=== PATIENT | male | born 1970 | race Caucasian/White ===

== ENCOUNTER 2021-05-10 22:34 | Inpatient (IN) ==
[2021-05-10 23:14] LABS: Basophils # (auto) 0.02 K/uL (0-0.2); Basophils % (auto) 0.1 %; Eosinophils # (auto) 0.12 K/uL (0-0.5); Eosinophils % (auto) 0.9 %; Hematocrit (blood only) 52.7 % (42-52); Hemoglobin 17.3 g/dL (14.0-18.0); Immature Granulocytes # (auto) 0.02 K/uL (0.00-0.02); Immature Granulocytes % (auto) 0.1 %; Lymphocytes # (auto) 1.35 K/uL (1.2-3.4); Lymphocytes % (auto) 9.9 %; Mean Corpuscular Hemoglobin 32.3 pg (25-34); Mean Corpuscular Hgb Conc 32.8 g/dL (32-36); Mean Corpuscular Volume 98.3 fL (80-100); Mean Platelet Volume 10.6 fL (7.4-10.4); Monocytes # (auto) 1.41 K/uL (0.11-0.59); Monocytes % (auto) 10.4 %; Neutrophils # (auto) 10.67 K/uL (1.4-6.5); Neutrophils % (auto) 78.6 %; Platelet Count 305 K/uL (130-400); RDW Coefficient of Variation 15.6 % (11.5-14.5); RDW Standard Deviation 56.5 fL (36.4-46.3); Red Blood Count 5.36 M/uL (4.7-6.1); White Blood Count 13.59 K/uL (4.8-10.8)
[2021-05-10 23:24] LABS: Partial Thromboplastin Time 27.5 Seconds (21.0-31.0)
[2021-05-10 23:37] LABS: Alanine Aminotransferase 16 U/L (12-78); Albumin Level 3.3 gm/dl (3.4-5.0); Aspartate Aminotransferase 11 U/L (15-37); BUN Creatinine Ratio 16.6 (10-20); Blood Urea Nitrogen 14 mg/dl (7-18); Calcium 9.8 mg/dl (8.5-10.1); Carbon Dioxide 29 mmol/L (21-32); Chloride 98 mmol/L (98-107); Creatinine Clr Calc Pharmacy 152.5 ml/min; Est GFR (African American) 117.5 ml/min; Est GFR (Non-African American) 101.4 ml/min; Glucose 104 mg/dl (70-99); Lipase 59 U/L (73-393); Magnesium 1.9 mg/dl (1.8-2.4); Sodium 134 mmol/L (136-145)
[2021-05-10 23:48] LABS: Albumin Globulin Ratio 0.6 (0.9-2); Alkaline Phosphatase 77 U/L (45-117); Bilirubin,Total 1.5 mg/dl (0.2-1); Globulin 5.6 gm/dl (2.5-4.0); NT Pro B Type Natriuretic Pept 155 pg/ml (0-900); Troponin I < 0.015 ng/ml (0-0.045)
[2021-05-11] MEDS ORDERED: OPTIRAY 320 125ml IV ONE (00:14)
[2021-05-11] MEDS ORDERED: PIPERACILL/TAZOBAC CONSULT ACTIVE PRN (01:36)
[2021-05-11] MEDS ORDERED: PIPERACILLIN/TAZOBACTAM 4.5 GM/120 ML BAG IV ONE (01:36)
--- NOTE | 2021-05-11 02:38 | History & Physical Report ---
Date of Service May 11, 2021 Assessment & Plan (1) Acute Lyme disease: Plan: Patient is a 50 year old male with PMHx GERD, Anxiety, Depression, Hypertension who presented by EMS for chief complaint of initially chest pain, but upon further discussion appears more LUQ abdominal pain in addition to bradycardia at 40bpm where he was given 0.5mg Atropine and fluids en-route. Lyme Disease -Questionable treatment duration of Lyme disease from patient's history -Will also run anaplasmosis at this time due to abdominal pain -Coverage with CTX and Doxycycline Bradycardia -Bradycardic to 40's in EMS and received 0.5mg Atropine -In ED now rate in the 50-60's -No history of cardiac conditions -?Lyme carditis due to duration and possible undertreatment -EKG here shows primarily 1st degree block -Continue to monitor on telemetry Abdominal Pain -Initially concerning for chest pain, though more abdominal in nature -Patient adamant about not allowing examination of the abdomen due to concerns of pain -CXR concerning for pneumonia, though chest CTA stat read noting primarily RUL chronic inflammation and subpleural ground-glass densities at the lung bases -Will await final read for chest CTA -Bilirubin elevated at 1.5 -Will order for CT ab/pelvis at this time Cellulitis L leg -Coverage with CTX and Doxycycline -Will add Vancomycin as patient has been in and out of the ED multiple times this past 1 month Elevated Serum Protein -Fairly elevated serum protein despite low albumin -May be secondary to current leukocytosis -With patients recent hx of fevers and night sweats (though also Lyme+) concern for malignancy -Will check UPEP and SPEP Dispo: Med/Surg Telemetry for continuous monitoring and IV antibiotics FEN: Regular diet DVT: Low risk, ambulate as able Code: Conditional - OK for CPR, patient would not want intubation (2) Abdominal pain: (3) Cellulitis of left leg: (4) Bradycardia: History of Present Illness Chief Complaint: Patient is a 50 year old male with PMHx GERD, Anxiety, Depression, Hypertension who presented by EMS for chief complaint of initially chest pain, but upon further discussion appears more LUQ abdominal pain in addition to bradycardia at 40bpm where he was given 0.5mg Atropine and fluids en-route. Patient is unfortunately a poor historian, but is able to note that his symptoms have been ongoing for the past 1-2 months. He note initially he started with symptoms concerning for cellulitis in his legs b/l 2 months ago where he was being treated with oral antibiotics. Patient then notes that around 01/09/21 he was seen in the ED for a flu like illness x1 week after which he had removed a tick from his left axilla and had developed a rash. At that time patient was started on a medrol dose pack for contact dermatitis. Patient notes that he saw his PCP on the week of March 27 as his symptoms had not improved and at that time he was found to have Lyme disease and started on Doxycycline 100mg BID. From this point on patient's history becomes somewhat convoluted as he notes that he was switched from Doxycycline to Amoxicillin within the past 1- 2 weeks for the cellulitis on his legs and that he was told the doxycycline was inappropriate treatment for his lyme disease. Patient cannot recall how many days of treatment he has been on Doxycycline, but states he did not take it today. He also has been noticing occasional fevers, night sweats, and joint pain worse in his elbows and knees. He feels his cellulitis has not improved much on his L leg. He also notes having abdominal pain that starts in his L flank and will "swoop across" his abdomen to the R side just above his abdomen line. He states it "feels like a night when you drink too much." He denies any nausea, vomiting, SOB, chest pain, chest pressure, and dizziness at this time. Med Hx: GERD, Anxiety, Depression, HTN Surg Hx: None per patient Soc Hx: Smokes 1/2 PPD, had done more prior, started smoking since 16. Drinks 1- 2 beers a year x7 years, used to drink up to a case of beer and fifth of [employer]. Endorses marijuana usage. Primary Care Provider: Scooter Servin Allergies Allergy/AdvReac Type Severity Reaction Status Date / Time POLLEN Allergy Intermediate SNEEZING, Uncoded 05/10/21 23:54 CONGESTION Home Medications Medication Instructions Recorded Confirmed Type albuterol sulfate 90 mcg/actuation 2 puff INHALATION Q4H PRN 05/10/21 05/10/21 History aerosol inhaler furosemide 40 mg tablet 40 mg PO DAILY 05/10/21 05/10/21 History triamcinolone acetonide 0.1 % 1 applic TOPICAL BID 05/10/21 05/10/21 History topical cream doxycycline hyclate 100 mg capsule 100 mg PO BID 21 Days #42 cap 05/15/21 Rx Past Med/Surg History Medical History Acute Lyme disease Surgical History No pertinent past surgical history Social History Smoking Status: Current every day smoker Tobacco Type: Cigarettes Hx Alcohol Use: Yes Alcohol type: beer Hx Substance Use: Yes Last Used Substance: Unknown Preferred Language: Nepalese Communication Ability: Effective Beliefs That Will Affect Care: None Current Living Situation: Alone Feels Safe at Home: Yes Assistive Devices: Brace/Splint/Immobilizer Review of Systems Review of Systems: All systems reviewed & are unremarkable except as noted in Subjective Physical Exam Constitutional: well developed, well nourished, + disheveled and + overweight; no acute distress Eyes: PERRL, conjunctivae normal, anicteric sclerae normal visual gunn by confrontation ENMT: external ear and nose normal, oropharynx normal Mouth: + poor dentition Neck: trachea midline, no thyromegaly Respiratory: normal respiratory effort, lungs clear to auscultation Cardiovascular: RRR, no murmur, no edema Extremities: no calf tenderness Gastrointestinal (Abdomen): Inspection/Auscultation: abdomen normal to inspection, + abdomen distended, normal bowel sounds and + significant pannus Percussion/Palpation: + abdomen tender (slight ttp in RUQ, patient would not allow examination of LUQ), + guarding (Noted with attempts to examine LUQ) and abdomen soft; abdomen not rigid Musculoskeletal: no cyanosis or clubbing, extremities motor strength 5/5 Head/Neck/Chest: normocephalic and head atraumatic Skin: no rashes, warm and dry Erythema noted overlying the left lower mid valentin to ankle No purulent drainage or bleeding Significant dry and scaly patches on patient's feet b/l worse on the L foot Neurologic: PERRL, EOMI, accommodation nl, no face palsy, no dysarthria Psychiatric: Orientation: alert and oriented x 3 Apperance: + disheveled Eye Contact: + fair eye contact Affect: euthymic affect Results & Data Results & Data ([facility]) Vital Signs (Past 12 Hours) Vital Signs Temp Pulse Pulse Resp BP BP Pulse Ox 05/11/21 02:27 50 L 16 163/81 H 96 05/11/21 00:17 49 L 16 129/92 93 05/10/21 22:53 96 05/10/21 22:48 36.4 C L 60 16 118/58 L 96 Supervising Physician Co-Signing Physician Notes Attending addendum: I have physically seen this patient, have supervised the medical residents jigar martin, and agree with the H&P unless as otherwise noted. Assessment and Plan: Acute Lyme disease- Ceftriaxone 2 g IV daily Doxycycline 100 mg IV twice daily Add anaplasmosis testing Bradycardia-symptomatic The patient will be admitted to telemetry for serial cardiac enzymes, serial EKG's, cardiac rhythm monitoring and a 2-D echocardiogram with Dopplers. Received 0.5 mg atropine by EMS in the field for heart rate in the 40s, with resultant ED heart rate in the 50-60s Question Lyme associated Not on any negative inotropes Multifocal pneumonia- Antibiotics as above COVID-19 testing negative Duonebs every 4 hours while awake and every 2 hours when necessary. Guaifenesin extended release 1200 mg p.o. twice daily Remaining orders and notations as noted Resident Activity Tracking Resident Involvement: Resident Care Provided Care Provided: Adult Hospital Medicine
--- NOTE | 2021-05-11 03:00 | Emergency Department Note ---
History of Present Illness General Chief Complaint: Chest Pain Stated Complaint: Chest Pain Time Seen by Provider: 05/10/21 22:34 History of Present Illness This 50-year-old who smokes and drinks alcohol presents to the ER complaining of chest pain for the past day with no prior heart disease Location: Chest Quality: Discomfort Severity: Moderate Duration: 1 day Timing: Started yesterday Context: Patient was concerned and came in Modifying factors: better with sitting up; worse with laying down Patient states he has been having chest pain or shortness of breath for the past day. He does smoke and drinks alcohol. It is worse with laying down. No history of heart failure. No prior heart disease. He normally goes to [facility] but they were on diversion and came here. Patient denies fevers, abdominal pain, vomiting, flulike illness. No Covid vaccine. Patient was given atropine by EMS for symptomatic bradycardia. He did not require any atropine in the ER. I did obtain the records from [place] patient's heart rate normally is in the low 50s. Home Medications Medication Instructions Recorded Confirmed Type albuterol sulfate 90 mcg/actuation 2 puff INHALATION Q4H PRN 05/10/21 05/10/21 History aerosol inhaler doxycycline hyclate 100 mg capsule 100 mg PO BID 05/10/21 05/10/21 History furosemide 40 mg tablet 40 mg PO DAILY 05/10/21 05/10/21 History triamcinolone acetonide 0.1 % 1 applic TOPICAL BID 05/10/21 05/10/21 History topical cream Allergies Allergy/AdvReac Type Severity Reaction Status Date / Time POLLEN Allergy Intermediate SNEEZING, Uncoded 05/10/21 23:54 CONGESTION Past Med/Surg History Medical History (Updated 05/11/21 @ 03:00 by Liza Deutsch PA-C) Acute Lyme disease Surgical History (Updated 05/11/21 @ 02:55 by Liza Deutsch PA-C) No pertinent past surgical history Social History Smoking Status: Current every day smoker Tobacco Type: Cigarettes Feels Safe at Home: Yes Review of Systems A total of 10 systems reviewed and were otherwise negative Physical Exam Vital Signs Vital Signs - 24 hr 05/10/21 22:48 05/10/21 22:53 05/11/21 00:17 Temperature 36.4 C L Temperature Source Oral Pulse Rate 60 Pulse Rate [Radial] 49 L Respiratory Rate 16 16 Blood Pressure 118/58 L Blood Pressure [Left Arm] 129/92 Blood Pressure Mean 78 Blood Pressure Mean [Left Arm] 104 Pulse Oximetry 96 96 93 Oxygen Delivery Method Room Air Room Air Room Air Oxygen Flow Rate 0 Sepsis Recent Fever Within 48 Hours No Sepsis New/Unexplained Change in Mental Status No Sepsis Action Taken by Nursing No Action Required 05/11/21 02:27 Temperature Temperature Source Pulse Rate Pulse Rate [Radial] 50 L Respiratory Rate 16 Blood Pressure Blood Pressure [Left Arm] 163/81 H Blood Pressure Mean Blood Pressure Mean [Left Arm] 108 Pulse Oximetry 96 Oxygen Delivery Method Room Air Oxygen Flow Rate Sepsis Recent Fever Within 48 Hours Sepsis New/Unexplained Change in Mental Status Sepsis Action Taken by Nursing VITALS: Vitals are noted on the nurse's note and reviewed by myself. Vital signs stable. GENERAL: Pleasant male, in no acute distress, nondiaphoretic, well-developed well-nourished. SKIN: Venous stasis changes to the lower legs, the rest of the skin was without rashes, or bruising. There is no tenting of the skin. Capillary reflex less than 2 seconds. HEAD: Normocephalic atraumatic. EARS: External auditory canals clear, tympanic membranes pearly cortez without erythema or effusion bilaterally. EYES: Pupils equal round and reactive to light and accommodation. Conjunctivae without injection, sclerae without icterus. Extraocular movements intact. NOSE: Patent, turbinates without inflammation or discharge. No sinus tenderness. MOUTH: Mucous membranes moist. Pharynx without erythema or exudate. Uvula midline. Airway patent. Tongue does not deviate. NECK: Supple without nuchal rigidity. No lymphadenopathy. No thyromegaly. Cervical spine is nontender. No JVD. HEART: Regular rate and rhythm LUNGS: Clear to auscultation bilaterally without wheezes, rales or rhonchi. No retractions or accessory muscle use. ABDOMEN: Positive bowel sounds x 4. Normal tympanic percussion. Soft, nonte nder, without masses or organomegaly. Rueda sign negative. No guarding or rebound tenderness. No CVA tenderness MUSCULOSKELETAL: No muscle atrophy noted. +1 pitting edema bilaterally up to the mid tib-fib NEURO: Patient was alert and oriented to person place and time. Normal sensation to light and sharp touch. No focal neurological deficits. Course Administered Medications Discontinued Medications Piperacillin Sod/Tazobactam Sod (Zosyn) 4.5 gm in 120 mls @ 240 mls/hr IV NOW ONE Stop: 05/11/21 02:05 Last Admin: 05/11/21 02:52 Dose: 240 mls/hr Documented by: [id number] Ioversol (Optiray 320 125ml) 120 ml IV ONCE ONE Stop: 05/11/21 00:15 Last Admin: 05/11/21 00:14 Dose: 120 ml Documented by: [id number] Medical Decision Making Medical Records Attestation: I reviewed the patient's medical records. Home Medications Current Medication List: was personally reviewed by me Laboratory Data Attestation: I reviewed the patient's lab results. Result diagrams: 05/10/21 23:00 05/10/21 23:00 Labs: Lab Results 05/10/21 05/10/21 05/10/21 Range/Units 23:00 23:00 23:00 WBC 13.59 H (4.8-10.8) K/uL RBC 5.36 (4.7-6.1) M/uL Hgb 17.3 (14.0-18.0) g/dL Hct 52.7 H (42-52) % MCV 98.3 (80-100) fL MCH 32.3 (25-34) pg MCHC 32.8 (32-36) g/dL RDW Std Deviation 56.5 H (36.4-46.3) fL RDW Coeff of Mee 15.6 H (11.5-14.5) % Plt Count 305 (130-400) K/uL MPV 10.6 H (7.4-10.4) fL Immature Gran % (Auto) 0.1 % Neut % (Auto) 78.6 % Lymph % (Auto) 9.9 % [place] % (Auto) 10.4 % Eos % (Auto) 0.9 % Baso % (Auto) 0.1 % Neut # (Auto) 10.67 H (1.4-6.5) K/uL Lymph # (Auto) 1.35 (1.2-3.4) K/uL [place] # (Auto) 1.41 H (0.11-0.59) K/uL Eos # (Auto) 0.12 (0-0.5) K/uL Baso # (Auto) 0.02 (0-0.2) K/uL Immature Gran # (Auto) 0.02 (0.00-0.02) K/uL APTT 27.5 (21.0-31.0) Seconds PTT Ratio 1.0 Sodium 134 L (136-145) mmol/L Potassium 4.0 (3.5-5.1) mmol/L Chloride 98 (98-107) mmol/L Carbon Dioxide 29 (21-32) mmol/L Anion Gap 8.0 (3-11) BUN 14 (7-18) mg/dl Creatinine 0.84 (0.6-1.4) mg/dl Est Cr Clr Drug Dosing 152.5 ml/min Est GFR ( Amer) 117.5 ml/min Est GFR (Non-Af Amer) 101.4 ml/min BUN/Creatinine Ratio 16.6 (10-20) Glucose 104 H (70-99) mg/dl Calcium 9.8 (8.5-10.1) mg/dl Magnesium 1.9 (1.8-2.4) mg/dl Total Bilirubin 1.5 H (0.2-1) mg/dl AST 11 L (15-37) U/L ALT 16 (12-78) U/L Alkaline Phosphatase 77 (45-117) U/L Troponin I < 0.015 (0-0.045) ng/ml NT-Pro-B Natriuret Pep 155 (0-900) pg/ml Total Protein 9.0 H (6.4-8.2) gm/dl Albumin 3.3 L (3.4-5.0) gm/dl Globulin 5.6 H (2.5-4.0) gm/dl Albumin/Globulin Ratio 0.6 L (0.9-2) Lipase 59 L (73-393) U/L TSH 2.420 (0.300-4.500) uIu/ml Ethyl Alcohol mg/dL (0-3) mg/dl Anaplasma Smear COVID-19 Eval Order SARS-CoV-2 (PCR) (Negative) 05/10/21 05/10/21 05/10/21 Range/Units 23:00 23:00 23:16 WBC (4.8-10.8) K/uL RBC (4.7-6.1) M/uL Hgb (14.0-18.0) g/dL Hct (42-52) % MCV (80-100) fL MCH (25-34) pg MCHC (32-36) g/dL RDW Std Deviation (36.4-46.3) fL RDW Coeff of Mee (11.5-14.5) % Plt Count (130-400) K/uL MPV (7.4-10.4) fL Immature Gran % (Auto) % Neut % (Auto) % Lymph % (Auto) % [place] % (Auto) % Eos % (Auto) % Baso % (Auto) % Neut # (Auto) (1.4-6.5) K/uL Lymph # (Auto) (1.2-3.4) K/uL [place] # (Auto) (0.11-0.59) K/uL Eos # (Auto) (0-0.5) K/uL Baso # (Auto) (0-0.2) K/uL Immature Gran # (Auto) (0.00-0.02) K/uL APTT (21.0-31.0) Seconds PTT Ratio Sodium (136-145) mmol/L Potassium (3.5-5.1) mmol/L Chloride (98-107) mmol/L Carbon Dioxide (21-32) mmol/L Anion Gap (3-11) BUN (7-18) mg/dl Creatinine (0.6-1.4) mg/dl Est Cr Clr Drug Dosing ml/min Est GFR ( Amer) ml/min Est GFR (Non-Af Amer) ml/min BUN/Creatinine Ratio (10-20) Glucose (70-99) mg/dl Calcium (8.5-10.1) mg/dl Magnesium (1.8-2.4) mg/dl Total Bilirubin (0.2-1) mg/dl AST (15-37) U/L ALT (12-78) U/L Alkaline Phosphatase (45-117) U/L Troponin I (0-0.045) ng/ml NT-Pro-B Natriuret Pep (0-900) pg/ml Total Protein (6.4-8.2) gm/dl Albumin (3.4-5.0) gm/dl Globulin (2.5-4.0) gm/dl Albumin/Globulin Ratio (0.9-2) Lipase (73-393) U/L TSH (0.300-4.500) uIu/ml Ethyl Alcohol mg/dL < 3.0 (0-3) mg/dl Anaplasma Smear See Comment COVID-19 Eval Order Covid19 at [facility] SARS-CoV-2 (PCR) (Negative) 05/10/21 Range/Units 23:16 WBC (4.8-10.8) K/uL RBC (4.7-6.1) M/uL Hgb (14.0-18.0) g/dL Hct (42-52) % MCV (80-100) fL MCH (25-34) pg MCHC (32-36) g/dL RDW Std Deviation (36.4-46.3) fL RDW Coeff of Mee (11.5-14.5) % Plt Count (130-400) K/uL MPV (7.4-10.4) fL Immature Gran % (Auto) % Neut % (Auto) % Lymph % (Auto) % [place] % (Auto) % Eos % (Auto) % Baso % (Auto) % Neut # (Auto) (1.4-6.5) K/uL Lymph # (Auto) (1.2-3.4) K/uL [place] # (Auto) (0.11-0.59) K/uL Eos # (Auto) (0-0.5) K/uL Baso # (Auto) (0-0.2) K/uL Immature Gran # (Auto) (0.00-0.02) K/uL APTT (21.0-31.0) Seconds PTT Ratio Sodium (136-145) mmol/L Potassium (3.5-5.1) mmol/L Chloride (98-107) mmol/L Carbon Dioxide (21-32) mmol/L Anion Gap (3-11) BUN (7-18) mg/dl Creatinine (0.6-1.4) mg/dl Est Cr Clr Drug Dosing ml/min Est GFR ( Amer) ml/min Est GFR (Non-Af Amer) ml/min BUN/Creatinine Ratio (10-20) Glucose (70-99) mg/dl Calcium (8.5-10.1) mg/dl Magnesium (1.8-2.4) mg/dl Total Bilirubin (0.2-1) mg/dl AST (15-37) U/L ALT (12-78) U/L Alkaline Phosphatase (45-117) U/L Troponin I (0-0.045) ng/ml NT-Pro-B Natriuret Pep (0-900) pg/ml Total Protein (6.4-8.2) gm/dl Albumin (3.4-5.0) gm/dl Globulin (2.5-4.0) gm/dl Albumin/Globulin Ratio (0.9-2) Lipase (73-393) U/L TSH (0.300-4.500) uIu/ml Ethyl Alcohol mg/dL (0-3) mg/dl Anaplasma Smear COVID-19 Eval Order SARS-CoV-2 (PCR) NEGATIVE (Negative) MDM Narrative Prior records/ancillary studies reviewed. Triage Nursing notes reviewed. Additional history obtained from EMS. The patient's history was concerning for chest pain. Differential diagnosis: Etiologies such as cardiac ischemia, aortic dissection, pulmonary embolism, pneumonia, pneumothorax, musculoskeletal, infections, pericarditis, myocarditis, esophageal rupture, gastrointestinal, as well as others were entertained. Physical examination: As above. ER treatment provided: An order was placed for continuous cardiac monitoring. The monitor shows a rate of 40-80 with a sinus rhythm. Zosyn On reassessment the patient felt better. Diagnostic interpretation by me: The electrocardiogram was negative for pathologic change. Normal sinus, first- degree AV block, no acute ST-T wave changes. Impression first-degree AV block sinus bradycardia interpreted by myself EKG ordered for chest pain I think arrhythmia is unlikely. EKG shows no interval abnormalities such as QT prolongation or WPW. There are no findings to suggest Brugada syndrome. Cardiac monitoring in the emergency department reveals no tachycardic or bradycardic dysrhythmia. Hypertrophic cardiomyopathy was considered but there are no clear historical elements pointing toward this. EKG is not suggestive. The QRS voltage is not extremely large and there are no suggestive Q waves. The labs revealed leukocytosis, negative troponin Imaging studies: CTACHEST: No previous studyfor comparison. Heart is in the upper limits of normal in size. Thoracic aorta appears normal. Evaluation of the pulmonaryarteries is limited bybreathing motion artifact which degrades visualization of some segments of basilar middle lobe and lingular muscles. No filling defect is appreciated. There is some pain groundglass densityat the left lung base and in the right lower lobe subpleural lung. The finding maybe related to subsegmental atelectasis, or pulmonaryinflammation. There is some focal bronchiectasis in the right upper lobe suggesting chronic inflammation. There is no pneumothorax or pleural fluid collection. Chest Wall appears normal. Impression: Limited evaluation of the pulmonaryarterieswith no visualized pulmonaryembolism. Bronchiectasis in the right upper lobe suggesting chronic inflammation. Subpleural groundglass densities at the lung bases likelyrelated to subsegmental atelectasis but may reflect some subpleural inflammation correlation with Covid studyis recommended Radiologist: Ryan Urbina MD HEART SCORE: Hx: high/mod/low suspicion: 1 ECG: ST depression/nonspecific changes/normal: 0 Age: Greater than 65/45-64/less than 45: 1 Risk factors: (Hypertension, hyperlipidemia, diabetes, coronary disease, tobacco use, cocaine use): 1 Troponin: Greater than 2 times normal limits/1-2 times normal limits/normal: 0 Total: 3 Consultation: A consultation was placed with the hospitalist. The case was discussed and diagnostics were reviewed. The patient was evaluated in the ER for further treatment. Exam and history seem consistent with chest pain with unclear etiology. This could be pneumonia or cardiac in etiology. Patient started antibiotics. Medicine is consulted. He will be admitted. By the evaluation outlined above emergent etiologies such as aortic dissection, pulmonary embolism, , pneumothorax, pericarditis, myocarditis, gastrointestinal, as well as others were deemed relatively unlikely. The pt informed about the findings as listed above. All questions were answered and pleased with the treatment. The chart was completed utilizing [employer] Speech voice recognition software. Grammatical errors, random word insertions, pronoun errors, and incomplete sentences are an occassional consequence of this system due to software limitations, ambient noise, and hardware issues. Any formal questions or concerns about the content, text, or information contained within the body of this dictation should be directly addressed to the physician digital marketing assistant for clarification. Impression & Plan Atypical chest pain, Chest pain Discharge Plan Visit Data Chief Complaint: Chest Pain Stated Complaint: Chest Pain ED Provider: Alberto Tavarez ED Midlevel Provider: Liza Deutsch Discharge Problem: Atypical chest pain, Chest pain Patient Disposition: Admitted As Inpatient Condition: Fair Forms Stand Alone Forms: [facility] Prescriptions Prescriptions: No Action furosemide 40 mg tablet 40 mg PO DAILY RF: 0 doxycycline hyclate 100 mg capsule 100 mg PO BID RF: 0 triamcinolone acetonide 0.1 % cream 1 applic TOPICAL BID RF: 0 albuterol sulfate 90 mcg/actuation HFA aerosol inhaler 2 puff INHALATION Q4H PRN (Reason: Shortness Of Breath) RF: 0 Referrals Referrals: Scooter Servin [Primary Care Provider] -
[2021-05-11 03:13] LABS: Lyme Ab IgG w/WB Rflx Positive (Negative); Lyme Ab IgM w/WB Rflx Positive (Negative)
[2021-05-11] MEDS ORDERED: VANCOMYCIN CONSULT ACTIVE PRN (04:13)
[2021-05-11] MEDS ORDERED: ONDANSETRON INJ 2 MG/ML 2 ML VIAL IV PRN ×2 (04:13→16:16)
[2021-05-11] MEDS ORDERED: VANCOMYCIN HCL 2,750 MG in SODIUM CHLORIDE 0.9% 500 ML IV ONE (04:13)
[2021-05-11] MEDS ORDERED: cefTRIAXone SODIUM 2,000 MG in DEXTROSE 5% 50 ML IV SCH (04:13)
[2021-05-11] MEDS ORDERED: DAPTOmycin 400 MG in SYRINGE 0 ML IV SCH (05:00)
[2021-05-11] MEDS ORDERED: DAPTOmycin 600 MG in SYRINGE 0 ML IV SCH (05:00)
[2021-05-11] MEDS: DOXYCYCLINE HYCLATE 100 MG in DEXTROSE 5% 100 ML IV SCH ×2 (05:43→16:01)
[2021-05-11 06:17] LABS: Basophils # (auto) 0.04 K/uL (0-0.2); Basophils % (auto) 0.3 %; Eosinophils # (auto) 0.06 K/uL (0-0.5); Eosinophils % (auto) 0.5 %; Hematocrit (blood only) 52.3 % (42-52); Hemoglobin 17.5 g/dL (14.0-18.0); Immature Granulocytes # (auto) 0.04 K/uL (0.00-0.02); Immature Granulocytes % (auto) 0.3 %; Lymphocytes # (auto) 1.55 K/uL (1.2-3.4); Lymphocytes % (auto) 11.8 %; Mean Corpuscular Hemoglobin 32.7 pg (25-34); Mean Corpuscular Hgb Conc 33.5 g/dL (32-36); Mean Corpuscular Volume 97.8 fL (80-100); Mean Platelet Volume 10.3 fL (7.4-10.4); Monocytes # (auto) 1.78 K/uL (0.11-0.59); Monocytes % (auto) 13.5 %; Neutrophils # (auto) 9.68 K/uL (1.4-6.5); Neutrophils % (auto) 73.6 %; Platelet Count 283 K/uL (130-400); RDW Coefficient of Variation 15.8 % (11.5-14.5); RDW Standard Deviation 56.3 fL (36.4-46.3); Red Blood Count 5.35 M/uL (4.7-6.1); White Blood Count 13.15 K/uL (4.8-10.8)
[2021-05-11 06:58] LABS: Alanine Aminotransferase 14 U/L (12-78); Albumin Globulin Ratio 0.6 (0.9-2); Albumin Level 3.2 gm/dl (3.4-5.0); Alkaline Phosphatase 76 U/L (45-117); Aspartate Aminotransferase 13 U/L (15-37); BUN Creatinine Ratio 13.1 (10-20); Blood Urea Nitrogen 11 mg/dl (7-18); Calcium 9.4 mg/dl (8.5-10.1); Carbon Dioxide 28 mmol/L (21-32); Chloride 99 mmol/L (98-107); Creatinine Clr Calc Pharmacy 153.8 ml/min; Est GFR (African American) 119.9 ml/min; Est GFR (Non-African American) 103.4 ml/min; Globulin 5.5 gm/dl (2.5-4.0); Glucose 99 mg/dl (70-99); Potassium 3.9 mmol/L (3.5-5.1); Sodium 132 mmol/L (136-145); Total Protein 8.7 gm/dl (6.4-8.2)
[2021-05-11 07:03] LABS: Troponin I < 0.015 ng/ml (0-0.045)
--- NOTE | 2021-05-11 07:32 | CT Scan Report ---
CT OF THE ABDOMEN AND PELVIS WITHOUT CONTRAST CLINICAL HISTORY: Left upper quadrant abdominal pain. COMPARISON STUDY: No previous studies for comparison. TECHNIQUE: Axial images of the abdomen and pelvis were obtained without IV contrast. Images were revi ewed in the axial, sagittal, and coronal planes. Automated exposure control was utilized for the toby dy. A dose lowering technique was utilized adhering to the principles of ALARA. FINDINGS: Visualized portions of the lower chest demonstrate a trace left pleural effusion. There are subpleural groundglass opacities within the bilateral lower lobes. Evaluation of the abdomen and pel vis is suboptimal on this unenhanced exam. Sensitivity for detection of urinary calculi is diminished given excreted contrast within the collecting systems, ureters and bladder. No pneumatosis, free air or portal venous gas is present. Unenhanced images of the liver, spleen, adrenal glands and pancreas are unremarkable. There is no evidence for a bowel obstruction. No lymphadenopathy is present. There is no ascites. No acute fractures identified within the visualized skeletal structures. There is no peripancreatic or pericholecystic infiltration. IMPRESSION: 1. No acute process within the abdomen or pelvis on unenhanced exam. 2. Trace left pleural effusion. Subpleural bilateral lower lobe opacities which favor an infectious p rocess. ACT 112: Negative or not required by law. Electronically signed by: Lex Dumont M.D. 05/11/2021 7:30 AM
[2021-05-11] MEDS ORDERED: MELATONIN 3 MG TAB PO PRN (07:43)
[2021-05-11] MEDS: ACETAMINOPHEN 325 MG TAB PO PRN (07:51)
[2021-05-11] MEDS: cefTRIAXone SODIUM 2,000 MG in DEXTROSE 5% 50 ML IV SCH (07:53)
--- NOTE | 2021-05-11 08:04 | CT Scan Report ---
CT ANGIOGRAPHY OF THE CHEST, PULMONARY EMBOLUS PROTOCOL CLINICAL HISTORY: Shortness of breath. Chest pain. Evaluate for pulmonary embolus. COMPARISON STUDY: Chest radiograph May 10, 2021. TECHNIQUE: Following IV administration of 120 mL of Optiray, helical axial images of the chest were o btained utilizing the pulmonary embolus protocol. Maximal intensity projections and sagittal and cor onal reformats were viewed on an independent 3D workstation. IV contrast was administered without co mplication. Automated exposure control was utilized for the study. A dose lowering technique was ut ilized adhering to the principles of ALARA. CT DOSE: 1154.12 mGy.cm FINDINGS: No pulmonary emboli are identified although evaluation of the lower lobe pulmonary arterie s is nearly nondiagnostic given respiratory motion. Moderate cardiomegaly is noted. No pericardial ef fusion. Trace left pleural effusion is noted. No pneumothorax is noted. Lungs are suboptimally assess ed due to respiratory motion. There are bilateral lower lobe ground glass opacities, greater on the l eft. There is bronchiectasis or cystic change within the right upper lobe which is chronic. There is mild paraseptal emphysema. Central airways are patent. No acute fracture or suspicious lesion is iden tified within the visualized skeletal structures. IMPRESSION: 1. No pulmonary emboli identified although evaluation of the bilateral lower lobe pulmonary arteries is nearly nondiagnostic given respiratory motion. Consideration might be given to repeat PE protocol CT and correlation with lower extremity venous Doppler ultrasound. 2. Trace left pleural effusion. Bilateral lower lobe ground glass opacities which may reflect an infe ctious process or atelectasis. 3. Cardiomegaly. ACT 112: Negative or not required by law. Electronically signed by: Lex Dumont M.D. 05/11/2021 8:03 AM
--- NOTE | 2021-05-11 08:13 | XRay Report ---
XR chest 1V portable CLINICAL HISTORY: Chest Pain COMPARISON STUDY: No previous studies for comparison. FINDINGS: There is no pneumothorax. No pleural effusion is noted. Mild left basilar opacity is presen t. Note is made of cardiomegaly. There is slight prominence of interstitium without evidence for pulm onary edema. IMPRESSION: 1. Mild left basilar opacity which may reflect an infectious process or atelectasis. 2. Cardiomegaly. No overt pulmonary edema. ACT 112: Negative or not required by law. Electronically signed by: Lex Dumont M.D. 05/11/2021 8:12 AM
[2021-05-11 08:15] LABS: Estimated Average Glucose 134 mg/dl; Hemoglobin A1C 6.3 % (4.5-5.6)
[2021-05-11] MEDS: ADVANCED PROBIOTIC 1250 MG CAPSULE PO SCH (09:17)
--- NOTE | 2021-05-11 10:12 | Electrocardiogram Report ---
Test Reason : Blood Pressure : / mmHG Vent. Rate : 048 BPM Atrial Rate : 048 BPM P-R Int : 278 ms QRS Dur : 086 ms QT Int : 500 ms P-R-T Axes : 051 003 033 degrees QTc Int : 446 ms Poor data quality, interpretation may be adversely affected Sinus bradycardia with 1st degree A-V block vs. Sinus rhythm with 2:1 A-V conduction (unusual T morphology, may be hidden p wave) Abnormal ECG No previous ECGs available Confirmed by Benja Ritter ([id number]) on 05/11/2021 10:12:51 AM Referred By: REFERRED SELF Confirmed By:Benja Ritter
--- NOTE | 2021-05-11 10:21 | Electrocardiogram Report ---
Test Reason : Blood Pressure : / mmHG Vent. Rate : 051 BPM Atrial Rate : 051 BPM P-R Int : 292 ms QRS Dur : 088 ms QT Int : 510 ms P-R-T Axes : 048 001 030 degrees QTc Int : 470 ms Probable Sinus rhythm with 2nd degree A-V block with 2:1 A-V conduction Biatrial enlargement Abnormal ECG When compared with ECG of 10-MAY-2021 22:44, No significant change Confirmed by Benja Ritter ([id number]) on 05/11/2021 10:21:22 AM Referred By: REFERRED SELF Confirmed By:Benja Ritter
--- NOTE | 2021-05-11 10:31 | Hospitalist Progress Note ---
Date of Service May 11, 2021 Assessment & Plan (1) Acute Lyme disease: Plan: Patient is a 50 year old male with PMHx GERD, Anxiety, Depression, Hypertension who presented by EMS for chief complaint of initially chest pain, but upon further discussion appears more LUQ abdominal pain in addition to bradycardia at 40bpm where he was given 0.5mg Atropine and fluids en-route. 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 -Patient reportedly being treated for Lyme in outpatient setting (initially on doxy --> amox) -Serologies revealing +IgM and +IgG -Given history of extensive rash, joint pains, and now bradycardia (c/f carditis), do suspect Lyme as primary cause of patient's symptoms -Continue CFTX and Doxycycline -- CFTX until normalization of block, doxycycline for 21d thereafter 2nd Degree AVB -- in setting of suspected Lyme carditis, -Apparent-bradycardia to 40's with EMS and received 0.5mg Atropine -Cardiology consulted, appreciate recommendations: - Appears to be 2nd degree AVB w/ 2:1 a/v conduction, re-appreciated on echo - Likely secondary to carditis - Continue to monitor on telemetry - Monitor for symptoms - none at present - Continue Lyme treatment, as abaove Abdominal Pain -Initially concerning for chest pain, though more abdominal in nature -Exam is non-surgical and improving with ABX (?) -CT-A/P unrevealing for acute processes, lipase (-), LFTs (-), TBili mildly elevated to 2.0 -CT-Chest revealing of trace L pleural effusion and bilateral lower lobe opacities s/o fluid vs. infectious process -Suspect secondary to mild pleuritis -Continue to monitor Cellulitis, Bilateral Lower Extremities (L>R) -Coverage with CTX and Doxycycline -Discontinue daptomycin given improvement with amox/doxy as outpatient Elevated Serum Protein -Fairly elevated serum protein despite low albumin -May be secondary to current leukocytosis -With patients recent hx of fevers and night sweats (though also Lyme+) concern for malignancy -Await SPEP, UPEP Dispo: Med/Surg Telemetry for continuous monitoring and IV antibiotics FEN: Regular diet DVT: Low risk, ambulate as able Code: Conditional - OK for CPR, patient would not want intubation (2) Abdominal pain: (3) Cellulitis of left leg: (4) Bradycardia: Admission and Anticipated Discharge Date Admission Date: May 11, 2021 Supervising Physician Co-Signing Physician Notes I also saw the patient and confirmed castillo portions of the history and a physical examination. Upon our exam, the patient is seated at the bedside edge. He reported in general feeling much better than yesterday. Much less in terms of dyspnea; he denies chest pain. He does complain of generalized joint pain, most noted in the hands and wrist. He notes that the abdominal pain that he had yesterday has improved. When I asked him to demonstrate the area discomfort, it is upper abdominal, just subdiaphragmatic, which does raise a question if this is all diaphragmatic irritation secondary from a pericarditis, or a pleurisy type picture. Exam 161/77, 48, 20, 37.4, 90% on room air Auscultated rate mid 40s; regular Lungs are clear with nonlabored respirations. Lower extremities with what appears to be mix of chronic venous stasis, with resolving cellulitis most noted with more intense erythema of the feet bilaterally, right worse than left. Data WBC 13.15, platelet count 283 Sodium 132, potassium 3.9, BUN 11, creatinine 0.8 C-reactive protein is elevated 7.79. Lyme IgG G and IgM are positive COVID-19 screen is negative Assessment and Plan I agree with the assessment and plan as noted in the resident documentation Lyme disease Bradycardia Appreciate cardiology consultation Echocardiogram pending Continue telemetry Pleuritic chest pain/abdominal pain Cellulitis, bilateral lower extremities, resolving Continue doxycycline and ceftriaxone for his Lyme and lower extremity cellulitis respectively Discontinue daptomycin; it is noted that the lower extremities were improving on amoxicillin alone as an outpatient Other diagnoses as noted in the resident documentation Subjective Did have one episode of prolonged 2:1 AVB overnight that self-resolved. NAEO otherwise. Reports feeling much better this morning - pain in his abdomen is down and just feels like he has more energy. We reviewed some of his history, and does endorse that his BILATERAL lower extremity rashes (which started after wound on his feet) got better following doxycycline --> amoxicillin in the outpatient setting. Still not necessarily clear from history why this was changed. Patient is seen at wound center. No CP/palpitations. No SOB. No n/v. Appetite ok. Review of Systems 2 Review of Systems: as per HPI Physical Exam Physical Exam: General: overall well appearing 50-year-old male who is sitting on edge of hospital bed, relaxed, upon my arrival. NAD. HEENT: MMM. Cardiac: Sinus bradycardia, no ectopy; S1 and S2 present with no murmurs, rubs, or gallops. Pulmonary: Good respiratory effort with symmetric expansion of the chest. No use of accessory muscles. Lungs were clear to auscultation bilaterally with no crackles or wheezes. Abdominal:No rash. Abdomen was soft, nondistended, and mildly-TTP within LUQ extending up toward the rib cage. Extremities: Lower extremities revealing of extensive blanchable erythema and scaling below the knees. Left foot with evidence of superficial, erythematous ulcer - no drainage. Results & Data Results & Data ([facility]) Vital Signs (Past 12 Hours) Vital Signs Temp Pulse Pulse Pulse Resp BP BP 05/11/21 07:17 37.8 C H 51 L 20 05/11/21 04:21 36.8 C 51 L 18 159/82 H 05/11/21 04:02 50 L 23 132/85 05/11/21 03:22 50 L 50 L 23 132/85 05/11/21 02:27 50 L 16 163/81 H 05/11/21 00:17 49 L 16 129/92 05/10/21 22:53 05/10/21 22:48 36.4 C L 60 16 118/58 L BP Pulse Ox 05/11/21 07:17 131/55 L 89 L 05/11/21 04:21 94 05/11/21 04:02 05/11/21 03:22 92 05/11/21 02:27 96 05/11/21 00:17 93 05/10/21 22:53 96 05/10/21 22:48 96 Resident Activity Tracking Resident Involvement: Resident Care Provided Care Provided: Adult Hospital Medicine
--- NOTE | 2021-05-11 10:53 | Cardiology Consultation ---
Date of Consultation May 11, 2021 Assessment & Plan (1) Bradycardia: Although ECG is suggestive of simple sinus bradycardia in the 50 bpm range and there is a notation mentioning that the patient's heart rate is usually in this range, the abnormal morphology of T waves on today's ECG as well as telemetry findings of clear evidence of high-grade heart block suggest that his underlying rhythm is actually sinus at 100 bpm with second-degree AV block and 2:1 AV conduction. Will confirm or refute this by evaluating atrial inflow pattern on his echocardiogram (to be obtained today). Further management will depend on whether the patient develops recurrent symptomatic bradycardia as well as whether he responds to treatment of his Lyme disease. 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 (2) Acute Lyme disease: Unclear duration of his Lyme disease, since his rash may have been a month or more ago. Certainly, occurrence of high-grade heart block in 50-year-old man with acute or subacute Lyme disease suggest an Lyme carditis, he is being appropriately treated for this with ceftriaxone and doxycycline. (3) Pleuritic chest pain: Likely due to either pleuritis (more likely) or pericarditis (less likely without ECG changes), fortunately the patient has a negative troponin and is unlikely to have a myocarditis. Again, suspect this is related to his underlying acute/subacute Lyme disease. Consider addition of nonsteroidal anti- inflammatory agent for symptomatic management. History of Present Illness Reason for Consultation: Bradycardia Requesting Physician: Kelvin Castillo MD Attending Physician: Bishnu Tam, DO History of Present Illness 50-year-old man with no cardiac history but a remote and recent history of Lyme disease was admitted with what now appears to be pleuritic chest pain as well as abdominal discomfort, noted to have high-grade heart block with 2:1 AV conduction. He notes that he was treated for Lyme disease 6 years ago and again began treatment about a month ago. He has had a multitude of symptoms including recurrent lower extremity cellulitis, bilateral thoracic erythema migrans type rash at some point, fevers and chills, all of which have been going on for weeks to a month or so. In the past few days, he noted nonspecific abdominal thoracic discomfort, today he is noting pleuritic chest pain worse on deep inspiration. Although ECG appears to be sinus bradycardia at 50 bpm, the T wave morphology is unusual (particularly in his ECG from today) and telemetry overnight distinctly showed sinus at a rate near 100 bpm with 2:1 AV block (which was more likely transiently revealed than simply occurring transiently). Suspect that he is consistently sinus at 100 bpm with 2-1 AV block, will check echocardiogram to confirm further. Allergies Allergy/AdvReac Type Severity Reaction Status Date / Time POLLEN Allergy Intermediate SNEEZING, Uncoded 05/10/21 23:54 CONGESTION Home Medications Medication Instructions Recorded Confirmed Type albuterol sulfate 90 mcg/actuation 2 puff INHALATION Q4H PRN 05/10/21 05/10/21 History aerosol inhaler doxycycline hyclate 100 mg capsule 100 mg PO BID 05/10/21 05/10/21 History furosemide 40 mg tablet 40 mg PO DAILY 05/10/21 05/10/21 History triamcinolone acetonide 0.1 % 1 applic TOPICAL BID 05/10/21 05/10/21 History topical cream Patient History Medical History Acute Lyme disease Surgical History No pertinent past surgical history Social History Smoking Status: Current every day smoker Tobacco Type: Cigarettes Hx Alcohol Use: Yes Alcohol type: beer Hx Substance Use: Yes Last Used Substance: Unknown Preferred Language: Tajik Communication Ability: Effective Beliefs That Will Affect Care: None Current Living Situation: Alone Feels Safe at Home: Yes Safety Concerns: Feels Safe At This Time Assistive Devices: Cane Physical Exam Physical Exam: Mildly obese middle-aged white male in no distress. Temperature 100.0 degrees. Normotensive BP. Pulse 50 bpm and regular. Skin: no ecchymoses or generalized lesions. HEENT: unremarkable. Neck: no JVD or carotid bruits. Lungs: Mildly decreased breath sounds but generally clear. Cardiac: regular rhythm, no obvious murmur or gallop. Abdomen: Minimal epigastric tenderness, otherwise benign. Extremities: Mild pretibial edema with bilateral rubor/erythema. Ulceration left foot. Neurologic: normal affect and conversation, nonfocal. Results & Data ([facility]) Laboratory Results Negative troponin x2. WBC 13.15 with normal hemoglobin. Sodium 132, otherwise normal electrolytes, BUN 11, creatinine 0.8. Diagnostic Findings ECG appears superficially to be sinus bradycardia at 51 bpm, however as noted in HPI this is more likely sinus tachycardia at 100 bpm with second-degree AV block with 2-1 AV conduction. Telemetry did show transient high-grade heart block with sinus at 100 bpm and ventricular rate 50 bpm. PG Care Time/CCT Total # of Minutes Spent Total Time Spent with Patient: Total time spent is greater than 50% in coordination of care (as documented) at patient's floor/unit and/or counseling patient: Coding Level of Care Code 08034 Inpt Consult Level 4 Diagnoses Bradycardia R00.1 Pleuritic chest pain R07.81 Acute Lyme disease A69.20
--- NOTE | 2021-05-11 12:30 | XCELERA ---
[id number]
[2021-05-11] MEDS ORDERED: KETOROLAC TROMETHAMINE 15 MG/ML VIAL IV ONE (15:01)
[2021-05-12] MEDS: DOXYCYCLINE HYCLATE 100 MG in DEXTROSE 5% 100 ML IV SCH (04:47)
[2021-05-12 07:36] LABS: Basophils # (auto) 0.04 K/uL (0-0.2); Basophils % (auto) 0.4 %; Eosinophils % (auto) 2.1 %; Hematocrit (blood only) 52.1 % (42-52); Immature Granulocytes # (auto) 0.03 K/uL (0.00-0.02); Immature Granulocytes % (auto) 0.3 %; Lymphocytes # (auto) 1.94 K/uL (1.2-3.4); Lymphocytes % (auto) 20.4 %; Mean Corpuscular Hemoglobin 32.5 pg (25-34); Mean Corpuscular Hgb Conc 32.6 g/dL (32-36); Mean Corpuscular Volume 99.6 fL (80-100); Mean Platelet Volume 10.6 fL (7.4-10.4); Monocytes # (auto) 1.25 K/uL (0.11-0.59); Monocytes % (auto) 13.1 %; Neutrophils # (auto) 6.06 K/uL (1.4-6.5); Neutrophils % (auto) 63.7 %; Platelet Count 299 K/uL (130-400); RDW Coefficient of Variation 15.8 % (11.5-14.5); RDW Standard Deviation 58.1 fL (36.4-46.3); Red Blood Count 5.23 M/uL (4.7-6.1); White Blood Count 9.52 K/uL (4.8-10.8)
[2021-05-12 08:08] LABS: Albumin Level 3.1 gm/dl (3.4-5.0); Calcium 9.6 mg/dl (8.5-10.1); Creatinine Clr Calc Pharmacy 155.1 ml/min; Est GFR (African American) 120.5 ml/min; Potassium 4.1 mmol/L (3.5-5.1)
[2021-05-12] MEDS: ADVANCED PROBIOTIC 1250 MG CAPSULE PO SCH (08:14)
[2021-05-12] MEDS: NICOTINE 14 MG/24 HR PATCH TD SCH (08:14)
[2021-05-12 08:20] LABS: Albumin Globulin Ratio 0.6 (0.9-2); Bilirubin,Total 1.1 mg/dl (0.2-1); Globulin 5.6 gm/dl (2.5-4.0); Total Protein 8.7 gm/dl (6.4-8.2)
[2021-05-12] MEDS ORDERED: NICOTINE 14 MG/24 HR PATCH TD SCH (09:00)
--- NOTE | 2021-05-12 09:11 | Hospitalist Progress Note ---
Date of Service May 12, 2021 Assessment & Plan (1) Acute Lyme disease: Plan: Patient is a 50 year old male with PMHx GERD, Anxiety, Depression, Hypertension who presented by EMS for chief complaint of initially chest pain, but upon further discussion appears more LUQ abdominal pain in addition to bradycardia at 40bpm where he was given 0.5mg Atropine and fluids en-route. Current suspicion is that symptoms are likely sec to Lyme carditis. 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 -Patient reportedly being treated for Lyme in outpatient setting (initially on doxy --> amox) -Serologies revealing +IgM and +IgG -Given history of extensive rash, joint pains, and now bradycardia (c/f carditis), do suspect Lyme as primary cause of patient's symptoms -Continue CFTX until normalization of blockade 2nd Degree AVB-- in setting of suspected Lyme carditis, -Apparent-bradycardia to 40's with EMS and received 0.5mg Atropine -With intermittent episodes of short 3rd degree AVB recorded overnight on 05/11- -Cardiology consulted, appreciate recommendations: - Appears to be 2nd degree AVB w/ 2:1 a/v conduction, re-appreciated on echo - Likely secondary to carditis - Continue to monitor on telemetry - Will await recs on need for temporary pacer - Echo demonstratin:1 AVB, normal LVEF (60-65%), mildly dilated RV, mild- moderate TR, mildly elevated RVSP, no effusion - Monitor for symptoms - none at present - Continue Lyme treatment, as above Abdominal Pain -- suspect secondary to pleuritis vs >> mild pericarditis -Initially concerning for chest pain, though more abdominal in nature -Exam is non-surgical and improving with ABX (?) -CT-A/P unrevealing for acute processes, lipase (-), LFTs (-), TBili mildly elevated to 2.0 -CT-Chest revealing of trace L pleural effusion and bilateral lower lobe opacities s/o fluid vs. infectious process -Suspect secondary to mild pleuritis or possibly pericarditis -- improving day- to-day -NSAIDS p.r.n. -Continue to monitor Venous Stasis Dermatitis (B/L), with mild Superimposed LLE Cellulitis -Encourage elevation of legs, compression stockings -Coverage with CTX and Doxycycline for now -Discontinue daptomycin given improvement with amox/doxy as outpatient Elevated Serum Protein -Fairly elevated serum protein despite low albumin -Suspect secondary to ongoing inflammation -With patients recent hx of fevers and night sweats (though also Lyme+) concern for malignancy -Await SPEP, UPEP Dispo: Med/Surg Telemetry for continuous monitoring and IV antibiotics FEN: Regular diet DVT: Low risk, ambulate as able Code: Conditional - OK for CPR, patient would not want intubation (2) Abdominal pain: (3) Cellulitis of left leg: (4) Bradycardia: Admission and Anticipated Discharge Date Admission Date: May 11, 2021 Supervising Physician Co-Signing Physician Notes I also saw the patient and confirmed castillo portions of the history and a physical examination. Upon our exam, the patient is seated at the bedside edge. He feels about the same as yesterday; more frustrated with being consistently ill for the last several weeks. Exam 146/75, 62, 17, 36.6, 92% on room air Auscultated rate mid 50s; regular Lungs are clear with nonlabored respirations. Lower extremities with what appears to be mix of chronic venous stasis, with resolving cellulitis. Data WBC 9.52, platelet count 299 Sodium 137, potassium 4.1, BUN 13, creatinine 0.79 Assessment and Plan I agree with the assessment and plan as noted in the resident documentation Lyme disease Bradycardia Appreciate cardiology consultation Continue telemetry Increase activity Pleuritic chest pain/abdominal pain Cellulitis, bilateral lower extremities, resolving Other diagnoses as noted in the resident documentation Subjective Feeling frustrated this morning. Notes that his illness course has been prolonged and is frustrated with still being in the hospital. Reports that he wants to leave later today if it is possible. We did spend thorough time discussing the reason for his stay and need for antibiotic and close cardiac monitoring. He did demonstrate understanding. Denies any chest pain, palpitations, shortness of breath. Denies any lightheadedness or vertigo. No nausea. Appetite good. Did have several instances of transition between second and third degree AV block last night, asymptomatic, occurred while sleeping. Review of Systems Review of Systems: As per HPI Physical Exam Physical Exam: General: overall well appearing 50-year-old male who is sitting on edge of hospital bed, relaxed, upon my arrival. NAD. HEENT: MMM. Cardiac: Sinus bradycardia, no ectopy; S1 and S2 present with no murmurs, rubs, or gallops. Pulmonary: Good respiratory effort with symmetric expansion of the chest. No use of accessory muscles. Lungs were clear to auscultation bilaterally with no crackles or wheezes. Abdominal:No rash. Abdomen was soft, nondistended, and mildly-TTP within LUQ extending up toward the rib cage. Extremities: Lower extremities revealing of extensive blanchable erythema and scaling below the knees. Left foot with evidence of superficial, erythematous ulcer - no drainage. Results & Data Results & Data ([facility]) Vital Signs (Past 12 Hours) Vital Signs Temp Pulse Pulse Resp BP Pulse Ox 05/12/21 07:54 36.8 C 49 L 20 161/77 H 93 05/12/21 07:43 47 L 05/12/21 02:50 36.9 C 50 L 24 160/77 H 93 05/11/21 23:15 50 L 05/11/21 22:33 36.8 C 48 L 20 170/77 H 92 Resident Activity Tracking Resident Involvement: Resident Care Provided Care Provided: Adult Hospital Medicine
[2021-05-12] MEDS: cefTRIAXone SODIUM 2,000 MG in DEXTROSE 5% 50 ML IV SCH (09:31)
--- NOTE | 2021-05-12 11:34 | Cardiology Progress Note ---
Date of Service May 12, 2021 Assessment & Plan (1) Bradycardia: Plan: As noted, I believe the patient is showing fairly persistent 2:1 AV block which is concealed (P wave within the T wave) with some evidence of improvement (today's ECG shows some one-to-one conduction). As such, he is not showing intermittent high-grade heart block but has a stable pattern of heart block with gradual improvement, therefore I do not believe he needs the transcutaneous, transvenous or permanent pacemaker. He has not shown any symptoms related to his relative bradycardia. Would increase activity, if he remains asymptomatic when walking short distances, once his other medical issues are under control he could be discharged home with periodic monitoring of his heart rate to confirm gradual improvement. 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 If he were to have more permanent second-degree heart block which was symptomatic (exertional dyspnea, etc.), he ultimately could require pacemaker. However, he is expected to gradually recover and placing a pacemaker now would be treating an asymptomatic individual with an improving condition and would risk pacemaker infection (given his recent cellulitis). Please arrange for follow-up with me 2 to 4 weeks after discharge to reassess his bradycardia/heart block. (2) Acute Lyme disease: Plan: Unclear duration of his Lyme disease, currently being treated. (3) Pleuritic chest pain: Plan: Resolved, likely pleuritis from his Lyme disease. Admission and Anticipated Discharge Date Admission Date: May 11, 2021 Subjective Uneventful night, patient no longer notes pleuritic chest pain. He denies any subjective palpitations, lightheadedness, presyncope, or syncope. He walks with the assistance of a cane, has only gone short distances so far. Telemetry shows apparent sinus bradycardia with episodes of second-degree heart block (2:1 AV conduction). Based on serial ECGs, telemetry, echocardiogram, most likely he has consistent sinus rhythm at 100 bpm with 2:1 A-V conduction resulting in a ventricular rate of 50 bpm. In other words, the heart block is consistently present but only occasionally revealed. Physical Exam Physical Exam: No distress. Afebrile. Mildly hypertensive. Pulse 50 bpm and regular. Skin: no ecchymoses or generalized lesions. HEENT: unremarkable. Neck: no JVD or carotid bruits. Lungs: Mildly decreased breath sounds but generally clear. Cardiac: regular rhythm, no obvious murmur or gallop. Abdomen: benign. Extremities: Mild pretibial edema with bilateral rubor/erythema. Ulceration left foot. Neurologic: normal affect and conversation, nonfocal. Results & Data ([facility]) Vital Signs (Past 12 Hours) Vital Signs Temp Pulse Pulse Resp BP Pulse Ox 05/12/21 07:54 98.2 F 49 L 20 161/77 H 93 05/12/21 07:43 47 L 05/12/21 02:50 98.4 F 50 L 24 160/77 H 93 Laboratory Results Troponin negative x2. Normal electrolytes, BUN 13, creatinine 0.79. Diagnostic Findings ECG today shows apparent sinus bradycardia, but given clinical context likely represents sinus rhythm at 100 bpm with variable AV conduction. The second beat is conducted one-to-one, the third beat is 2:1 (P wave buried in the T wave of the second beat), the fourth beat is 1:1 conduction, remaining beats are 2:1 conduction. PG Care Time/CCT Total # of Minutes Spent Total Time Spent with Patient: Total time spent is greater than 50% in coordination of care (as documented) at patient's floor/unit and/or counseling patient: Coding Level of Care Code 81360 Subseq Hosp Care Lvl 3 Diagnoses Bradycardia R00.1 Acute Lyme disease A69.20 Pleuritic chest pain R07.81
--- NOTE | 2021-05-12 18:25 | Electrocardiogram Report ---
Test Reason : Blood Pressure : / mmHG Vent. Rate : 056 BPM Atrial Rate : 056 BPM P-R Int : 266 ms QRS Dur : 106 ms QT Int : 478 ms P-R-T Axes : 041 -02 040 degrees QTc Int : 461 ms Poor data quality, interpretation may be adversely affected Sinus bradycardia with 1st degree A-V block with Premature atrial complexes Left atrial enlargement Incomplete right bundle branch block Nonspecific ST abnormality Abnormal ECG When compared with ECG of 11-MAY-2021 04:59, Premature atrial complexes are now Present Sinus rhythm is no longer with 2nd degree A-V block Confirmed by Gregory Olivo ([id number]) on 05/12/2021 6:24:51 PM Referred By: REFERRED SELF Confirmed By:Veto Olivo
[2021-05-13 08:14] LABS: Basophils # (auto) 0.05 K/uL (0-0.2); Basophils % (auto) 0.5 %; Eosinophils # (auto) 0.25 K/uL (0-0.5); Eosinophils % (auto) 2.5 %; Hematocrit (blood only) 51.5 % (42-52); Hemoglobin 16.7 g/dL (14.0-18.0); Immature Granulocytes # (auto) 0.03 K/uL (0.00-0.02); Immature Granulocytes % (auto) 0.3 %; Lymphocytes # (auto) 1.69 K/uL (1.2-3.4); Lymphocytes % (auto) 16.6 %; Mean Corpuscular Hemoglobin 32.4 pg (25-34); Mean Corpuscular Hgb Conc 32.4 g/dL (32-36); Mean Corpuscular Volume 99.8 fL (80-100); Mean Platelet Volume 10.3 fL (7.4-10.4); Monocytes # (auto) 1.21 K/uL (0.11-0.59); Monocytes % (auto) 11.9 %; Neutrophils # (auto) 6.97 K/uL (1.4-6.5); Neutrophils % (auto) 68.2 %; Platelet Count 297 K/uL (130-400); RDW Coefficient of Variation 15.6 % (11.5-14.5); RDW Standard Deviation 57.2 fL (36.4-46.3); Red Blood Count 5.16 M/uL (4.7-6.1)
[2021-05-13] MEDS: NICOTINE 14 MG/24 HR PATCH TD SCH (08:17)
[2021-05-13] MEDS: ADVANCED PROBIOTIC 1250 MG CAPSULE PO SCH (08:17)
[2021-05-13] MEDS: cefTRIAXone SODIUM 2,000 MG in DEXTROSE 5% 50 ML IV SCH (08:19)
[2021-05-13 08:48] LABS: Albumin Level 3.1 gm/dl (3.4-5.0); BUN Creatinine Ratio 15.2 (10-20); Calcium 10.1 mg/dl (8.5-10.1); Creatinine Clr Calc Pharmacy 167.8 ml/min; Est GFR (African American) 124.5 ml/min; Est GFR (Non-African American) 107.4 ml/min
[2021-05-13 08:51] LABS: Albumin Globulin Ratio 0.5 (0.9-2); Bilirubin,Total 1.1 mg/dl (0.2-1); Globulin 5.7 gm/dl (2.5-4.0); Total Protein 8.8 gm/dl (6.4-8.2)
--- NOTE | 2021-05-13 09:20 | Cardiology Progress Note ---
Date of Service May 13, 2021 Assessment & Plan (1) Second degree AV block: (2) Bradycardia: Plan: I believe the patient is showing fairly persistent 2:1 AV block which is mostly concealed (P wave within the T wave) with some evidence of improvement on telemetry this morning, particularly when he was walking (reverts back to 1:1 conduction). Case discussed with Dr. Tam, I would agree that in order to avoid the need for a PICC line it is reasonable to keep the patient here another 24 to 48 hours to document further resolution of his high-grade heart block. Hopefully, his second-degree AV block will resolve and his AR interval will be favorable (apparently, AR interval less than 0.3 seconds is desirable in order to switch from IV to p.o. antibiotics). If his high-grade heart block does not resolve over the next 48 hours, would need to consider permanent pacemaker placement. Although he had a fever and leukocytosis early, he has not shown evidence of bacteremia and has had no further fever and now has a normal white count. After another 48 hours, if he remains afebrile with a normal white count, the risk of an implanted device developing an infection should therefore be quite low. (3) Acute Lyme disease: Plan: Unclear duration of his Lyme disease, currently being treated with IV ceftriaxone. Admission and Anticipated Discharge Date Admission Date: May 11, 2021 Subjective Patient noted brief palpitations at one point overnight, otherwise no complaints. No further chest pain. No lightheadedness, presyncope, or syncope. He notes that he sleeps poorly and he is quite anxious to go home. Telemetry again showed sinus rhythm with probable 2:1 AV block which is largely concealed (P buried in T wave) but which intermittently becomes apparent. He also demonstrated periods of 1:1 conduction for several beats in a row but not consistently. This morning, we had him ambulate and his conduction returned to 1:1 and his rate jumped from 50 bpm to 100 bpm. Physical Exam Physical Exam: No distress. Afebrile. Normotensive. Pulse 50 bpm and regular. Skin: no ecchymoses or generalized lesions. HEENT: unremarkable. Neck: no JVD or carotid bruits. Lungs: Mildly decreased breath sounds but generally clear. Cardiac: regular rhythm, no obvious murmur or gallop. Abdomen: benign. Extremities: Mild pretibial edema with bilateral rubor/erythema. Neurologic: normal affect and conversation, nonfocal. Results & Data ([facility]) Vital Signs (Past 12 Hours) Vital Signs Temp Pulse Pulse Resp BP Pulse Ox Pulse Ox 05/13/21 07:27 97.7 F 42 L 18 158/76 H 91 05/13/21 07:20 42 L 05/13/21 04:23 98.4 F 51 L 16 147/98 H 94 05/13/21 04:00 94 05/13/21 02:21 64 05/12/21 23:30 97.7 F 83 18 139/85 93 Laboratory Results Normal electrolytes, BUN 11, creatinine 0.73. Diagnostic Findings ECG today showed sinus rhythm with second-degree AV block with 2-1 AV conduction and a ventricular rate of 40 bpm. PG Care Time/CCT Total # of Minutes Spent Total Time Spent with Patient: Total time spent is greater than 50% in coordination of care (as documented) at patient's floor/unit and/or counseling patient: Coding Level of Care Code 14858 Subseq Hosp Care Lvl 3 Diagnoses Bradycardia R00.1 Acute Lyme disease A69.20 Second degree AV block I44.1
--- NOTE | 2021-05-13 12:20 | Hospitalist Progress Note ---
Date of Service May 13, 2021 Assessment & Plan (1) Acute Lyme disease: Plan: Patient is a 50 year old male who presented by EMS for chief complaint of left sided chest/abdominal pain in addition to bradycardia at 40bpm where he was given 0.5mg Atropine and fluids en-route. Current suspicion is that symptoms are likely sec to Lyme carditis. 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 -Patient reportedly being treated for Lyme in outpatient setting (initially on doxy --> amox) -Serologies revealing +IgM and +IgG -Given history of extensive rash, joint pains, and now bradycardia (c/f carditis), do suspect Lyme as primary cause of patient's symptoms -Continue CFTX until normalization of blockade 2nd Degree AVB-- in setting of suspected Lyme carditis -Apparent-bradycardia to 40's with EMS and received 0.5mg Atropine -With intermittent episodes of short 3rd degree AVB recorded overnight on 05/11- -Cardiology consulted, appreciate recommendations: - Appears to be 2nd degree AVB w/ 2:1 a/v conduction, re-appreciated on echo - Likely secondary to carditis - Continue to monitor on telemetry - After discussion with cardiology (Dr. Ritter), will hold patient for another 24-48 hours. If high grade block resolves, he can be discharged home. If not, pacer placement will be reconsidered. - Echo demonstratin:1 AVB, normal LVEF (60-65%), mildly dilated RV, mild- moderate TR, mildly elevated RVSP, no effusion - Monitor for symptoms - none at present - Continue Lyme treatment, as above Abdominal Pain -- suspect secondary to pleuritis vs >> mild pericarditis -Initially concerning for chest pain, though more abdominal in nature -Exam is non-surgical and improving with ABX (?) -CT-A/P unrevealing for acute processes, lipase (-), LFTs (-), TBili mildly elevated to 2.0 -CT-Chest revealing of trace L pleural effusion and bilateral lower lobe opacities s/o fluid vs. infectious process -Suspect secondary to mild pleuritis or possibly pericarditis -- improving day-to-day -NSAIDS p.r.n. -Continue to monitor Venous Stasis Dermatitis (B/L), with mild Superimposed LLE Cellulitis -Encourage elevation of legs, compression stockings -Coverage with ceftriaxone -Discontinue daptomycin given improvement with amox/doxy as outpatient Elevated Serum Protein -Fairly elevated serum protein despite low albumin -Suspect secondary to ongoing inflammation -With patients recent hx of fevers and night sweats (though also Lyme+) concern for malignancy -Await WALDOP, JARET Dispo: Med/Surg Telemetry for continuous monitoring FEN: Carb consistent diet (prediabetic) DVT: Lovenox SQ Code: Conditional - OK for CPR, patient would not want intubation (2) Abdominal pain: (3) Cellulitis of left leg: (4) Bradycardia: Admission and Anticipated Discharge Date Admission Date: May 11, 2021 Supervising Physician Co-Signing Physician Notes I also saw the patient and confirmed castillo portions of the history and a physical examination. I saw the patient concurrent with cardiology. We discussed the case in detail. We actually ambulated the patient in the hallway and during this time, on telemetry, he reverted back to 1:1 conduction with heart rate in the mid 80s to 100. With rest, before and after walking, look to be in a persistent 2:1 AV block, rate around 50. He denies any chest pain or shortness of breath. He continues to complain of generalized joint discomfort. Exam 131/82, 50, 19, 36.6, 90% room air Auscultated rate mid 50s; regular Lungs are clear with nonlabored respirations. Lower extremities with what appears to be mix of chronic venous stasis, with resolving cellulitis. Data WBC 10.2, hemoglobin 16.7, platelet count 297. Sodium 137, potassium 4.0, BUN 11, creatinine 0.73. Assessment and Plan I agree with the assessment and plan as noted in the resident documentation Lyme disease Bradycardia Reviewing the overnight telemetry with cardiology this morning, does not appear to be any evidence of third-degree heart block. More reassuring is that he has 1:1 conduction with activity and he is asymptomatic at rest despite his 2:1 AV block and bradycardia. Hope here is that we can avoid sending him home on IV Rocephin, which would require PICC line. If his conduction abnormalities would resolve, we could safely transition him to oral doxycycline. Of course, if his heart block were to progress, he would need a pacemaker; that seems unlikely given his progress thus far. Appreciate cardiology consultation Continue telemetry Increase activity Pleuritic chest pain/abdominal pain Cellulitis, bilateral lower extremities, resolving Other diagnoses as noted in the resident documentation Subjective no acute events overnight, although patient reports he did not sleep well. He complains about the EKG leads and pacer pads on chest. he expresses a desire to leave the hospital Review of Systems Review of Systems: All systems reviewed & are unremarkable except as noted in HPI & below Physical Exam Constitutional: WD/WN, vitals as above + obese and cooperative Eyes: + anicteric sclerae ENMT: external ear and nose normal, oropharynx normal Neck: normal visual inspection and trachea midline Respiratory: normal respiratory effort, lungs clear to auscultation Cardiovascular: Rate/Rhythm: + bradycardic; + abnormal rhythm Heart Sounds: normal S1 and normal S2 Musculoskeletal: Head/Neck/Chest: normocephalic and head atraumatic Skin: no rashes, warm and dry Neurologic: moves all extremities Psychiatric: A+Ox3, euthymic affect Results & Data Results & Data ([facility]) Vital Signs (Past 12 Hours) Vital Signs Temp Pulse Pulse Resp BP Pulse Ox Pulse Ox 05/13/21 07:27 36.5 C 42 L 18 158/76 H 91 05/13/21 07:20 42 L 05/13/21 04:23 36.9 C 51 L 16 147/98 H 94 05/13/21 04:00 94 05/13/21 02:21 64 Resident Activity Tracking Resident Involvement: Resident Care Provided Care Provided: Adult Hospital Medicine
[2021-05-13] MEDS: IBUPROFEN 200 MG TAB PO PRN (16:47)
--- NOTE | 2021-05-13 18:59 | Electrocardiogram Report ---
Test Reason : Blood Pressure : / mmHG Vent. Rate : 040 BPM Atrial Rate : 040 BPM P-R Int : 284 ms QRS Dur : 106 ms QT Int : 586 ms P-R-T Axes : 054 -03 032 degrees QTc Int : 477 ms Marked sinus bradycardia with 1st degree A-V block abd 2:1 AV conduction Possible Left atrial enlargement Abnormal ECG When compared with ECG of 12-MAY-2021 06:15, Premature atrial complexes are no longer Present Confirmed by Gregory Olivo ([id number]) on 05/13/2021 6:58:58 PM Referred By: REFERRED SELF Confirmed By:Veto Olivo
[2021-05-13] MEDS: ENOXAPARIN INJ 40 MG/0.4 ML SYR SQ SCH (20:03)
[2021-05-14 08:02] LABS: Creatinine Ur 59 mg/dL (20-320); Protein, Urine Random 44 mg/dL (5-25); Ur Protein/Creat Ratio mg/g 746 mg/g creat (22-128); Urine Abnormal Protein Band 1 DNR mg/dL (NONE DETECTED); Urine Abnormal Protein Band 2 DNR mg/dL (NONE DETECTED); Urine Abnormal Protein Band 3 DNR mg/dL (NONE DETECTED); Urine Protein/Creatinine Ratio 0.746 (0.022-0.128)
[2021-05-14] MEDS: ADVANCED PROBIOTIC 1250 MG CAPSULE PO SCH (08:38)
[2021-05-14] MEDS: NICOTINE 14 MG/24 HR PATCH TD SCH (08:39)
[2021-05-14] MEDS: cefTRIAXone SODIUM 2,000 MG in DEXTROSE 5% 50 ML IV SCH (08:45)
--- NOTE | 2021-05-14 09:41 | Hospitalist Progress Note ---
Date of Service May 14, 2021 Assessment & Plan (1) Acute Lyme disease: Plan: Patient is a 50 year old male who presented by EMS for chief complaint of left sided chest/abdominal pain in addition to bradycardia at 40bpm where he was given 0.5mg Atropine and fluids en-route. Current suspicion is that symptoms are likely sec to Lyme carditis. 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 -Patient reportedly being treated for Lyme in outpatient setting (initially on doxy --> amox) -Serologies revealing +IgM and +IgG -Given history of extensive rash, joint pains, and now bradycardia (c/f carditis), do suspect Lyme as primary cause of patient's symptoms -Continue CFTX until normalization of blockade 2nd Degree AVB -- asymptomatic; in setting of suspected Lyme carditis -Worsening bradycardia from 30-50s throughout admission - Echo demonstratin:1 AVB, normal LVEF (60-65%), mildly dilated RV, mild- moderate TR, mildly elevated RVSP, no effusion -Cardiology consulted, appreciate recommendations: - Appears to be 2nd degree AVB w/ 2:1 a/v conduction, re-appreciated on echo - Likely secondary to carditis - Continue to monitor on telemetry - Given lack of improvement, proceeding with pacemaker placement - Following pacer placement, will require completion of 28-day ABX treatment (finish with doxycycline) --> began 05/11, finish 06/08 Abdominal Pain -- resolved; suspect secondary to pleuritis -Initially concerning for chest pain, though more abdominal in nature on subsequent exams -CT-A/P unrevealing for acute processes, lipase (-), LFTs (-), TBili mildly elevated to 2.0 -CT-Chest revealing of trace L pleural effusion and bilateral lower lobe opacities s/o fluid vs. infectious process -Suspect secondary to mild pleuritis or possibly pericarditis -- improving day-to-day -NSAIDS p.r.n. -Continue to monitor Venous Stasis Dermatitis (B/L), with mild Superimposed LLE Cellulitis -Much improved -Encourage elevation of legs, compression stockings -Coverage with ceftriaxone -Discontinue daptomycin given improvement with amox/doxy as outpatient Elevated Serum Protein -Fairly elevated serum protein despite low albumin -Suspect secondary to ongoing inflammation -With patients recent hx of fevers and night sweats (though also Lyme+) concern for malignancy -Await SPEP, UPEP Dispo: Med/Surg Telemetry for continuous monitoring FEN: NPO for now given pacer placement // return to carb consistent diet once done (prediabetic) DVT: Lovenox SQ Code: Conditional - OK for CPR, patient would not want intubation (2) Abdominal pain: (3) Cellulitis of left leg: (4) Bradycardia: Admission and Anticipated Discharge Date Admission Date: May 11, 2021 Supervising Physician Co-Signing Physician Notes I also saw the patient and confirmed castillo portions of the history and a physical examination. I also discussed the case with cardiology. The patient continues to be in a 2-1 block, there is periods of one-to-one conduction with activity. Cardiology discussed with the patient the idea of a pacemaker. It sounds like this discussion is ongoing. He denies any chest pain or shortness of breath. He continues to complain of generalized joint discomfort. Exam 146/92, 42, 17, 36.6, 94% on room air Auscultated rate around 50; regular Lungs are clear with nonlabored respirations. Lower extremities with what appears to be mix of chronic venous stasis, with resolving cellulitis. Data No new lab work Assessment and Plan I agree with the assessment and plan as noted in the resident documentation Lyme disease Bradycardia Appreciate cardiology consultation Continue ceftriaxone and telemetry Increase activity Pleuritic chest pain/abdominal pain Cellulitis, bilateral lower extremities, resolving Other diagnoses as noted in the resident documentation Subjective NAEO. Feeling well this AM. Feels like he has more energy than prior. No CP/palpitations/SOB. Eager to walk around. No lightheadedness or dizziness. Appetite strong. No n/v. Review of Systems Review of Systems: as per HPI Physical Exam Physical Exam: General: overall well appearing 50-year-old male who is sitting on edge of hospital bed, relaxed, upon my arrival. NAD. HEENT: MMM. Cardiac: Bradycardic in the setting of AVB; S1 and S2 present with no murmurs, rubs, or gallops. Pulmonary: Good respiratory effort with symmetric expansion of the chest. No use of accessory muscles. Lungs were clear to auscultation bilaterally with no crackles or wheezes. Abdominal: Abdomen was soft, nondistended, and mildly-TTP within LUQ extending up toward the rib cage. Extremities: Lower extremities revealing of extensive blanchable erythema and scaling below the knees. Left foot with evidence of superficial, erythematous ulcer - no drainage. Results & Data Results & Data ([facility]) Vital Signs (Past 12 Hours) Vital Signs Temp Pulse Pulse Resp BP BP Pulse Ox 05/14/21 07:29 77 05/14/21 07:26 36.5 C 43 L 19 160/91 H 95 05/14/21 04:38 36.3 C L 39 L 16 171/79 H 94 05/13/21 23:53 43 L 05/13/21 23:32 36.6 C 42 L 16 151/72 H 95 Resident Activity Tracking Resident Involvement: Resident Care Provided Care Provided: Adult [facility] Medicine
[2021-05-14 09:46] LABS: Albumin 3.5 g/dL (3.8-4.8); Alpha 1 Globulin 0.4 g/dL (0.2-0.3); Alpha 2 Globulin 0.8 g/dL (0.5-0.9); Beta-1-Globulin 0.5 g/dL (0.4-0.6); Beta-2-Globulin 0.6 g/dL (0.2-0.5); Monoclonal Protein Band 1 DNR g/dL (NONE DETECTED); Monoclonal Protein Band 2 DNR g/dL (NONE DETECTED); Monoclonal Protein Band 3 DNR g/dL (NONE DETECTED); Total Protein 7.8 g/dL (6.1-8.1)
--- NOTE | 2021-05-14 10:19 | Cardiology Progress Note ---
Date of Service May 14, 2021 Assessment & Plan (1) Second degree AV block: (2) Bradycardia: Plan: Although he is showing some evidence of improvement (periods of 1:1 conduction lasting up to 1 minute) there is no certainty that he will return to normal conduction and he is not inclined to "wait it out" either in the hospital or with a PICC line for home IV antibiotics. Given uncertainty as to whether his rhythm will normalize long-term and given the persistence of significant and actually somewhat worsening bradycardia (heart rate decreased from 50 bpm to 40 bpm), reasonable to consider permanent pacemaker placement. Will consult Dr. Olivo for evaluation. Although the patient did have some fever and signs of inflammation on admission, he has been afebrile for the past several days and had negative blood cultures, thus the risk of blood-borne infection of the newly implanted device should be low. (3) Acute Lyme disease: Plan: Unclear duration of his Lyme disease, currently being treated with IV ceftriaxone. Admission and Anticipated Discharge Date Admission Date: May 11, 2021 Subjective Uneventful night. Feeling somewhat better overall. Has noted generalized fatigue for some time. He was not inclined to have a PICC line placed and would be amenable to pacemaker placement (he inquired about this option). Telemetry overnight continues to show bradycardia at 40 bpm which appears to be sinus rhythm with mostly 2:1 AV conduction, although there were periods of 1:1 conduction which were now more than a few beats, they were not sustained for more than 1 minute at a time. Physical Exam 2 Physical Exam: No distress. Afebrile. Mildly hypertensive. Pulse 40 bpm and regular. Skin: no ecchymoses or generalized lesions. HEENT: unremarkable. Neck: no JVD or carotid bruits. Lungs: Mildly decreased breath sounds but generally clear. Cardiac: regular rhythm, no obvious murmur or gallop. Abdomen: benign. Extremities: Mild pretibial edema with bilateral rubor/erythema. Neurologic: normal affect and conversation, nonfocal. Results & Data ([facility]) Vital Signs (Past 12 Hours) Vital Signs Temp Pulse Pulse Resp BP BP Pulse Ox 05/14/21 07:29 77 05/14/21 07:26 97.7 F 43 L 19 160/91 H 95 05/14/21 04:38 97.3 F L 39 L 16 171/79 H 94 09/08/21 23:53 43 L 05/13/21 23:32 97.9 F 42 L 16 151/72 H 95 PG Care Time/CCT Total # of Minutes Spent Total Time Spent with Patient: Total time spent is greater than 50% in coordination of care (as documented) at patient's floor/unit and/or counseling patient: Coding Level of Care Code 60799 Subseq Hosp Care Lvl 3 Diagnoses Second degree AV block I44.1 Bradycardia R00.1 Acute Lyme disease A69.20
[2021-05-14] MEDS: FAMOTIDINE 20 MG TAB PO SCH (14:31)
[2021-05-14] MEDS: IBUPROFEN 200 MG TAB PO PRN (15:47)
[2021-05-14 16:47] LABS: 18KDIGG Band REACTIVE; 23KDIGG Band REACTIVE; 23KDIGM Band REACTIVE; 28KDIGG Band NON-REACTIVE; 30KDIGG Band NON-REACTIVE; 39KDIGG Band REACTIVE; 39KDIGM Band REACTIVE; 41KDIGG Band REACTIVE; 41KDIGM Band NON-REACTIVE; 45KDIGG Band NON-REACTIVE; 58KDIGG Band REACTIVE; 66KDIGG Band NON-REACTIVE; 93KDIGG Band NON-REACTIVE; Lyme Antibodies, WB IgG POSITIVE (NEGATIVE); Lyme Antibodies, WB IgM POSITIVE (NEGATIVE)
[2021-05-14] MEDS: ENOXAPARIN INJ 40 MG/0.4 ML SYR SQ SCH (19:49)
[2021-05-15] MEDS: IBUPROFEN 200 MG TAB PO PRN ×2 (02:56→20:07)
[2021-05-15] MEDS: NICOTINE 14 MG/24 HR PATCH TD SCH (08:15)
[2021-05-15] MEDS: FAMOTIDINE 20 MG TAB PO SCH (08:16)
[2021-05-15] MEDS: ADVANCED PROBIOTIC 1250 MG CAPSULE PO SCH (08:16)
[2021-05-15] MEDS: cefTRIAXone SODIUM 2,000 MG in DEXTROSE 5% 50 ML IV SCH (08:19)
[2021-05-15 08:55] LABS: Basophils # (auto) 0.06 K/uL (0-0.2); Basophils % (auto) 0.8 %; Eosinophils # (auto) 0.36 K/uL (0-0.5); Eosinophils % (auto) 4.8 %; Hematocrit (blood only) 52.2 % (42-52); Hemoglobin 16.9 g/dL (14.0-18.0); Immature Granulocytes # (auto) 0.01 K/uL (0.00-0.02); Immature Granulocytes % (auto) 0.1 %; Lymphocytes # (auto) 2.03 K/uL (1.2-3.4); Lymphocytes % (auto) 27.1 %; Mean Corpuscular Hemoglobin 32.4 pg (25-34); Mean Corpuscular Hgb Conc 32.4 g/dL (32-36); Mean Corpuscular Volume 100.2 fL (80-100); Mean Platelet Volume 10.2 fL (7.4-10.4); Monocytes # (auto) 0.96 K/uL (0.11-0.59); Monocytes % (auto) 12.8 %; Neutrophils # (auto) 4.08 K/uL (1.4-6.5); Neutrophils % (auto) 54.4 %; Platelet Count 314 K/uL (130-400); RDW Coefficient of Variation 15.1 % (11.5-14.5); RDW Standard Deviation 56.1 fL (36.4-46.3); Red Blood Count 5.21 M/uL (4.7-6.1)
[2021-05-15 09:21] LABS: Albumin Level 3.2 gm/dl (3.4-5.0); BUN Creatinine Ratio 12.9 (10-20); Calcium 9.9 mg/dl (8.5-10.1); Creatinine Clr Calc Pharmacy 150.2 ml/min; Est GFR (African American) 119.3 ml/min; Est GFR (Non-African American) 102.9 ml/min; Potassium 3.9 mmol/L (3.5-5.1)
[2021-05-15 09:23] LABS: Albumin Globulin Ratio 0.6 (0.9-2); Bilirubin,Total 0.9 mg/dl (0.2-1); Globulin 5.3 gm/dl (2.5-4.0); Total Protein 8.5 gm/dl (6.4-8.2)
--- NOTE | 2021-05-15 13:20 | Discharge Summary ---
Date of Service May 15, 2021 Admission HPI Per Admitting Provider Chief Complaint: Patient is a 50 year old male with PMHx GERD, Anxiety, Depression, Hypertension who presented by EMS for chief complaint of initially chest pain, but upon further discussion appears more LUQ abdominal pain in addition to bradycardia at 40bpm where he was given 0.5mg Atropine and fluids en-route. Patient is unfortunately a poor historian, but is able to note that his symptoms have been ongoing for the past 1-2 months. He note initially he started with symptoms concerning for cellulitis in his legs b/l 2 months ago where he was being treated with oral antibiotics. Patient then notes that around 01/09/21 he was seen in the ED for a flu like illness x1 week after which he had removed a tick from his left axilla and had developed a rash. At that time patient was started on a medrol dose pack for contact dermatitis. Patient notes that he saw his PCP on the week of March 27 as his symptoms had not improved and at that time he was found to have Lyme disease and started on Doxycycline 100mg BID. From this point on patient's history becomes somewhat convoluted as he notes that he was switched from Doxycycline to Amoxicillin within the past 1- 2 weeks for the cellulitis on his legs and that he was told the doxycycline was inappropriate treatment for his lyme disease. Patient cannot recall how many days of treatment he has been on Doxycycline, but states he did not take it today. He also has been noticing occasional fevers, night sweats, and joint pain worse in his elbows and knees. He feels his cellulitis has not improved much on his L leg. He also notes having abdominal pain that starts in his L flank and will "swoop across" his abdomen to the R side just above his abdomen line. He states it "feels like a night when you drink too much." He denies any nausea, vomiting, SOB, chest pain, chest pressure, and dizziness at this time. Med Hx: GERD, Anxiety, Depression, HTN Surg Hx: None per patient Soc Hx: Smokes 1/2 PPD, had done more prior, started smoking since 16. Drinks 1- 2 beers a year x7 years, used to drink up to a case of beer and fifth of Joshua Varela. Endorses marijuana usage. Primary Care Provider: Scooter Servin Admission Exam Per Admitting Provider Constitutional: well developed, well nourished, + disheveled and + overweight; no acute distress Eyes: PERRL, conjunctivae normal, anicteric sclerae normal visual gunn by confrontation ENMT: external ear and nose normal, oropharynx normal Mouth: + poor dentition Neck: trachea midline, no thyromegaly Respiratory: normal respiratory effort, lungs clear to auscultation Cardiovascular: RRR, no murmur, no edema Extremities: no calf tenderness Gastrointestinal (Abdomen): Inspection/Auscultation: abdomen normal to inspection, + abdomen distended, normal bowel sounds and + significant pannus Percussion/Palpation: + abdomen tender (slight ttp in RUQ, patient would not allow examination of LUQ), + guarding (Noted with attempts to examine LUQ) and abdomen soft; abdomen not rigid Musculoskeletal: no cyanosis or clubbing, extremities motor strength 5/5 Head/Neck/Chest: normocephalic and head atraumatic Skin: no rashes, warm and dry Erythema noted overlying the left lower mid valentin to ankle No purulent drainage or bleeding Significant dry and scaly patches on patient's feet b/l worse on the L foot Neurologic: PERRL, EOMI, accommodation nl, no face palsy, no dysarthria Psychiatric: Orientation: alert and oriented x 3 Apperance: + disheveled Eye Contact: + fair eye contact Affect: euthymic affect Principal Diagnosis Lyme carditis Discharge Exam Constitutional WD/WN, vitals as above Respiratory normal respiratory effort, lungs clear to auscultation Cardiovascular Rate/Rhythm: regular rhythm and + bradycardic Heart Sounds: no murmur Gastrointestinal (Abdomen) normal bowel sounds, soft, nontender, no hepatosplenomegaly Skin no rashes, warm and dry Psychiatric Orientation: alert and oriented x 3 Affect: + irritable affect Discharge Data Allergies Allergy/AdvReac Type Severity Reaction Status Date / Time POLLEN Allergy Intermediate SNEEZING, Uncoded 05/10/21 23:54 CONGESTION Consultations 05/11/21 01:44 ED Decision to Admit Stat 05/11/21 05:39 Consult Cardiology Routine Ordered Studies 05/10/21 22:49 CT angio chest PE protocol Urgent 05/11/21 02:38 CT abd pelvis wo con Urgent Hospital Course (1) Acute Lyme disease: Patient is a 50 year old male with recent diagnosis of Lyme disease admitted for Lyme carditis. 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 - Serologies revealing Lyme +IgM and +IgG. 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 Received ceftriaxone IV x4 days while admitted. Antibiotics (PO doxycycline 100mg PO BID) ordered for 21 more days to local pharmacy). 2nd Degree AVB -- asymptomatic; in setting of Lyme disease - Worsening bradycardia from 30-50s throughout admission - Echo demonstratin:1 AV block, normal LVEF (60-65%), mildly dilated RV, mild-moderate TR, mildly elevated RVSP, no effusion - Cardiology consulted, appreciate recommendations: - Agree with 2:1 AV block, likely secondary to Lyme carditis. - Recommended pacemaker, however patient left AMA and therefore will have follow up outpatient with possible pacemaker if no improvement. Long discussion had about possibility of worsening bradycardia, cardiac arrest, and . Patient echoed understanding of these possibilities and still left AMA. Abdominal Pain -- resolved; suspect secondary to pleuritis - Initially concerning for chest pain, though more abdominal in nature on subsequent exams. - CT-A/P unrevealing for acute processes, lipase (-), LFTs (-), TBili mildly elevated to 2.0. - CT-Chest revealing of trace L pleural effusion and bilateral lower lobe opacities s/o fluid vs. infectious process. - Suspect secondary to mild pleuritis or possibly pericarditis -- improved day-to-day during admission. - NSAIDS p.r.n. Venous Stasis Dermatitis (B/L), with mild Superimposed LLE Cellulitis: - Encourage elevation of legs, compression stockings. - Discharged AMA, with prescription sent for doxycycline as described above which will cover for typical causes of cellulitis. Elevated Serum Protein: - Fairly elevated serum protein despite low albumin. - Suspect secondary to ongoing inflammation. - With patients recent hx of fevers and night sweats (though also Lyme+) concern for malignancy. - Will require outpatient work up. (2) Abdominal pain: (3) Cellulitis of left leg: (4) Bradycardia: Total Time Total Time Spent Total Time Spent (In Minutes): see attending attestation Discharge Plan Discharge Items Patient Disposition: Against Medical Advice Reason For Visit: ABD PAIN, LYME Condition on Discharge: Fair Activity: Per Instructions section Non-emergency contact: Primary Care Provider and Nuclear Waste Process Operator Follow-up/Referrals: Juan Carlos Olivo MD [Physician] - 05/18/21 9:30 am Scooter Servin [Primary Care Provider] - 05/19/21 12:15 pm Pending Studies at Discharge: No Stand-Alone Forms: [employer], Smoking Cessation Skilled Items Patient informed of condition?: Yes Discharge Prognosis: Stable Medications and DC Order Prescriptions: New doxycycline hyclate 100 mg capsule 100 mg PO BID 21 Days Qty: 42 RF: 0 Continued furosemide 40 mg tablet 40 mg PO DAILY RF: 0 triamcinolone acetonide 0.1 % cream 1 applic TOPICAL BID RF: 0 albuterol sulfate 90 mcg/actuation HFA aerosol inhaler 2 puff INHALATION Q4H PRN (Reason: Shortness Of Breath) RF: 0 Discontinued doxycycline hyclate 100 mg capsule 100 mg PO BID RF: 0 Krames/Other Patient Handouts: A1C, 5 Steps for Eating Healthier Admission Data Admit Date/Time: 05/14/21 11:19 Attending Provider: Gibran Reid Admit Provider: James Snyder Primary Care Provider: Scooter Servin Other Providers: Kelvin Castillo ; Juan Carlos Olivo Other Interventions: Discharge Summary Assessment (RN) Last Done: 05/15/21 13:18 Supervising Physician Co-Signing Physician Notes Please see progress note--patient decided after he attempted to leave AMA that he would like stay. Resident Activity Tracking Resident Involvement: Resident Care Provided Care Provided: Adult Hospital Medicine
--- NOTE | 2021-05-15 14:08 | Hospitalist Progress Note ---
Date of Service May 15, 2021 Assessment & Plan (1) Acute Lyme disease: Plan: Patient is a 50 year old male with recent diagnosis of Lyme disease admitted for Lyme carditis. Lyme Disease with Lyme Carditis: - Patient reportedly was being treated for Lyme in outpatient setting prior to presentation. - Serologies revealing Lyme +IgM and +IgG. 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 Received ceftriaxone IV x4 days while admitted. Antibiotics (PO doxycycline 100mg PO BID) ordered for 21 more days to local pharmacy). 2nd Degree AVB -- asymptomatic; in setting of Lyme disease - Worsening bradycardia from 30-50s throughout admission - Echo demonstratin:1 AV block, normal LVEF (60-65%), mildly dilated RV, mild-moderate TR, mildly elevated RVSP, no effusion - Cardiology consulted, appreciate recommendations: - Agree with 2:1 AV block, likely secondary to Lyme carditis. - Possible that patient will need pacemaker if conduction disease does not improve. Will continue to monitor with telemetry and daily EKGs with Cardiology visit tomorrow. - Continue ceftriaxone while admitted with discharge on doxycycline 100mg PO BID. Abdominal Pain -- resolved; suspect secondary to pleuritis - Initially concerning for chest pain, though more abdominal in nature on subsequent exams. - CT-A/P unrevealing for acute processes, lipase (-), LFTs (-), TBili mildly elevated to 2.0. - CT-Chest revealing of trace L pleural effusion and bilateral lower lobe opacities s/o fluid vs. infectious process. - Suspect secondary to mild pleuritis or possibly pericarditis -- improved day-to-day during admission. - NSAIDS p.r.n. Venous Stasis Dermatitis (B/L), with mild Superimposed LLE Cellulitis: - Encourage elevation of legs, compression stockings. - Continue ceftriaxone while admitted with transition to PO antibiotics on discharge. Elevated Serum Protein: - Fairly elevated serum protein despite low albumin. - Suspect secondary to ongoing inflammation. - With patients recent hx of fevers and night sweats (though also Lyme+) concern for malignancy. - Will require outpatient work up. (2) Abdominal pain: (3) Cellulitis of left leg: (4) Bradycardia: Admission and Anticipated Discharge Date Admission Date: May 14, 2021 Supervising Physician Co-Signing Physician Notes Patient seen and examined independently of PGY-3 Dr. Light. Agree with history, exam findings, assessment and plan of care as outlined. In brief, Mr. Spears is a 50 year old male admitted with heart block, possibly secondary to Lyme disease. Earlier in the day, he was adamant about leaving before his heart block had resolved. However, after he spoke with his brother in law, he had decided to stay for further IV antibiotic treatment for Lyme carditis. Brother in law is concerned about patient's mental health. 1. Lyme carditis. Serologies positive for IgM, IgG. Continue IV ceftriaxone until heart block normalizes. 2. Second degree heart block. Echo with EF 60-65%, mildly dilated RV, mild to moderate TR, mildly elevated RVSP. Appreciate recommendations from Dr. Olivo. Would prefer to wait out resolution of heart block with antibiotic therapy for Lyme; however there is a possibility that this heart block is not related to Lyme. 3. elevated serum protein. SPEP and UPEP pending. 4. mental health concerns. Does not require inpatient psychiatric consult at this time and this can be addressed by his PCP, unless there is a new mental h ealth concern that requires inpatient psychiatric consultation. Dispo: pending resolution of heart block. Subjective Patient is irritated today at the prospect of being unclear on what his plan is. He is awaiting Cardiology consult. 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 No sensation of palpitations or SOB. Review of Systems Review of Systems: All systems reviewed & are unremarkable except as noted in HPI & below Constitutional: no fever, no chills and no malaise Respiratory: no cough and no dyspnea Cardiovascular: + chest pain; no palpitations and no edema Gastrointestinal: no abdominal pain, no constipation and no diarrhea/loose stools Physical Exam Constitutional: WD/WN, vitals as above Respiratory: normal respiratory effort, lungs clear to auscultation Cardiovascular: Rate/Rhythm: regular rhythm and + bradycardic Heart Sounds: no murmur Gastrointestinal (Abdomen): normal bowel sounds, soft, nontender, no hepatosplenomegaly Skin: no rashes, warm and dry Psychiatric: Orientation: alert and oriented x 3 Affect: + irritable affect Results & Data Results & Data ([facility]) Vital Signs (Past 12 Hours) Vital Signs Temp Pulse Pulse Pulse Pulse Resp BP 05/15/21 13:18 36.9 C 42 L 46 L 51 L 22 169/87 H 05/15/21 12:00 42 L 05/15/21 11:38 36.9 C 46 L 22 169/87 H 05/15/21 08:10 42 L 05/15/21 07:57 36.4 C L 42 L 20 148/77 H 05/15/21 04:08 05/15/21 03:52 36.6 C 51 L 20 BP Pulse Ox 05/15/21 13:18 162/92 H 95 05/15/21 12:00 05/15/21 11:38 95 05/15/21 08:10 05/15/21 07:57 95 05/15/21 04:08 162/92 H 05/15/21 03:52 92 Resident Activity Tracking Resident Involvement: Resident Care Provided Care Provided: Adult [facility]
--- NOTE | 2021-05-15 18:00 | Electrocardiogram Report ---
Test Reason : Blood Pressure : / mmHG Vent. Rate : 038 BPM Atrial Rate : 076 BPM P-R Int : 280 ms QRS Dur : 096 ms QT Int : 468 ms P-R-T Axes : 061 000 023 degrees QTc Int : 372 ms Sinus rhythm with 2nd degree A-V block with 2:1 A-V conduction Biatrial enlargement Abnormal ECG When compared with ECG of 13-MAY-2021 07:13, Sinus rhythm is now with 2nd degree A-V block QT has shortened Confirmed by Gregory Olivo ([id number]) on 05/15/2021 6:00:15 PM Referred By: REFERRED SELF Confirmed By:Veto Olivo
--- NOTE | 2021-05-15 18:08 | Electrocardiogram Report ---
Test Reason : Blood Pressure : / mmHG Vent. Rate : 043 BPM Atrial Rate : 043 BPM P-R Int : 280 ms QRS Dur : 098 ms QT Int : 548 ms P-R-T Axes : 050 -04 024 degrees QTc Int : 463 ms Sinus rhythm with 2:1 AV block Possible Left atrial enlargement Abnormal ECG When compared with ECG of 15-MAY-2021 04:00, QT has lengthened Confirmed by Gregory Olivo ([id number]) on 05/15/2021 6:08:15 PM Referred By: REFERRED SELF Confirmed By:Veto Olivo
--- NOTE | 2021-05-15 18:25 | Cardiology Progress Note ---
Date of Service May 15, 2021 Assessment & Plan (1) Second degree AV block: (2) Bradycardia: Plan: He continues to have an element of second-degree heart block. This appears to be at the AV node level given the development of Wenckebach activity with exertion. The patient did not report symptoms of dizziness or lightheadedness. He does have an element of dyspnea. Given his young age, absence of symptoms and diagnosis of Lyme disease there did not appear to be any urgency and recommending a pacemaker. Yesterday I recommended he continue his treatment for Lyme disease to see if his conduction improves. I suggested that this could be performed at home if he was interested. I do not believe there are any alarming features of his conduction disease that would require continued hospitalization if treatment of his Lyme disease can be accomplished at home. As he was interested in leaving the hospital I suggested a return to our clinic on Tuesday for repeat EKG and discussion of whether a permanent pacemaker may be beneficial. (3) Acute Lyme disease: Plan: Unclear duration of his Lyme disease, currently being treated with IV ceftriaxone. Admission and Anticipated Discharge Date Admission Date: May 14, 2021 Subjective Second new the patient requested discharge and did not want any specific intervention or additional studies performed. He did not report any specific complaints and claims to have been ambulatory. Physical Exam Physical Exam: Agitated. Respiratory effort normal [facility] Vital Signs (Past 12 Hours) Vital Signs Temp Pulse Pulse Pulse Pulse Resp BP 05/15/21 15:47 36.6 C 43 L 20 161/93 H 05/15/21 15:20 46 L 05/15/21 13:18 36.9 C 42 L 46 L 51 L 22 169/87 H 05/15/21 12:00 42 L 05/15/21 11:38 36.9 C 46 L 22 169/87 H 05/15/21 08:10 42 L 05/15/21 07:57 36.4 C L 42 L 20 148/77 H BP Pulse Ox 05/15/21 15:47 96 05/15/21 15:20 05/15/21 13:18 162/92 H 95 05/15/21 12:00 05/15/21 11:38 95 05/15/21 08:10 05/15/21 07:57 95 Laboratory Results Abnormal Lab Results 05/15/21 05/15/21 08:24 08:24 WBC 7.50 RBC 5.21 Hgb 16.9 Hct 52.2 H MCV 100.2 H MCH 32.4 MCHC 32.4 RDW Std Deviation 56.1 H RDW Coeff of Mee 15.1 H Plt Count 314 MPV 10.2 Immature Gran % (Auto) 0.1 Neut % (Auto) 54.4 Lymph % (Auto) 27.1 Coos % (Auto) 12.8 Eos % (Auto) 4.8 Baso % (Auto) 0.8 Neut # (Auto) 4.08 Lymph # (Auto) 2.03 Coos # (Auto) 0.96 H Eos # (Auto) 0.36 Baso # (Auto) 0.06 Immature Gran # (Auto) 0.01 Sodium 137 Potassium 3.9 Chloride 105 Carbon Dioxide 27 Anion Gap 6.0 BUN 11 Creatinine 0.81 Est Cr Clr Drug Dosing 150.2 Est GFR ( Amer) 119.3 Est GFR (Non-Af Amer) 102.9 BUN/Creatinine Ratio 12.9 Glucose 104 H Calcium 9.9 Total Bilirubin 0.9 AST 13 L ALT 17 Alkaline Phosphatase 75 Total Protein 8.5 H Albumin 3.2 L Globulin 5.3 H Albumin/Globulin Ratio 0.6 L PG Care Time/CCT Total # of Minutes Spent Total Time Spent with Patient: Total time spent is greater than 50% in coordination of care (as documented) at patient's floor/unit and/or counseling patient: Coding Level of Care Code 23114 Subseq Hosp Care Lvl 2 Diagnoses Second degree AV block I44.1 Bradycardia R00.1 Acute Lyme disease A69.20
[2021-05-15] MEDS: ENOXAPARIN INJ 40 MG/0.4 ML SYR SQ SCH (18:43)
[2021-05-15] MEDS: ACETAMINOPHEN 325 MG TAB PO PRN (21:26)
[2021-05-16] MEDS: cefTRIAXone SODIUM 2,000 MG in DEXTROSE 5% 50 ML IV SCH (08:43)
[2021-05-16] MEDS: FAMOTIDINE 20 MG TAB PO SCH (08:50)
[2021-05-16] MEDS: ADVANCED PROBIOTIC 1250 MG CAPSULE PO SCH (08:50)
[2021-05-16] MEDS: NICOTINE 14 MG/24 HR PATCH TD SCH (08:50)
--- NOTE | 2021-05-16 10:48 | Billing Data ---
Date of Service May 16, 2021 Coding Level of Care Code 49412 Initial Inpt Care Lvl 3
--- NOTE | 2021-05-16 13:46 | Discharge Summary ---
Date of Service May 16, 2021 Admission HPI Per Admitting Provider Chief Complaint: Patient is a 50 year old male with PMHx GERD, Anxiety, Depression, Hypertension who presented by EMS for chief complaint of initially chest pain, but upon further discussion appears more LUQ abdominal pain in addition to bradycardia at 40bpm where he was given 0.5mg Atropine and fluids en-route. Patient is unfortunately a poor historian, but is able to note that his symptoms have been ongoing for the past 1-2 months. He note initially he started with symptoms concerning for cellulitis in his legs b/l 2 months ago where he was being treated with oral antibiotics. Patient then notes that around 01/09/21 he was seen in the ED for a flu like illness x1 week after which he had removed a tick from his left axilla and had developed a rash. At that time patient was started on a medrol dose pack for contact dermatitis. Patient notes that he saw his PCP on the week of March 27 as his symptoms had not improved and at that time he was found to have Lyme disease and started on Doxycycline 100mg BID. From this point on patient's history becomes somewhat convoluted as he notes that he was switched from Doxycycline to Amoxicillin within the past 1- 2 weeks for the cellulitis on his legs and that he was told the doxycycline was inappropriate treatment for his lyme disease. Patient cannot recall how many days of treatment he has been on Doxycycline, but states he did not take it today. He also has been noticing occasional fevers, night sweats, and joint pain worse in his elbows and knees. He feels his cellulitis has not improved much on his L leg. He also notes having abdominal pain that starts in his L flank and will "swoop across" his abdomen to the R side just above his abdomen line. He states it "feels like a night when you drink too much." He denies any nausea, vomiting, SOB, chest pain, chest pressure, and dizziness at this time. Med Hx: GERD, Anxiety, Depression, HTN Surg Hx: None per patient Soc Hx: Smokes 1/2 PPD, had done more prior, started smoking since 16. Drinks 1- 2 beers a year x7 years, used to drink up to a case of beer and fifth of Joshua Varela. Endorses marijuana usage. Primary Care Provider: Scooter Servin Admission Exam Per Admitting Provider Constitutional: well developed, well nourished, + disheveled and + overweight; no acute distress Eyes: PERRL, conjunctivae normal, anicteric sclerae normal visual gunn by confrontation ENMT: external ear and nose normal, oropharynx normal Mouth: + poor dentition Neck: trachea midline, no thyromegaly Respiratory: normal respiratory effort, lungs clear to auscultation Cardiovascular: RRR, no murmur, no edema Extremities: no calf tenderness Gastrointestinal (Abdomen): Inspection/Auscultation: abdomen normal to inspection, + abdomen distended, normal bowel sounds and + significant pannus Percussion/Palpation: + abdomen tender (slight ttp in RUQ, patient would not allow examination of LUQ), + guarding (Noted with attempts to examine LUQ) and abdomen soft; abdomen not rigid Musculoskeletal: no cyanosis or clubbing, extremities motor strength 5/5 Head/Neck/Chest: normocephalic and head atraumatic Skin: no rashes, warm and dry Erythema noted overlying the left lower mid valentin to ankle No purulent drainage or bleeding Significant dry and scaly patches on patient's feet b/l worse on the L foot Neurologic: PERRL, EOMI, accommodation nl, no face palsy, no dysarthria Psychiatric: Orientation: alert and oriented x 3 Apperance: + disheveled Eye Contact: + fair eye contact Affect: euthymic affect Principal Diagnosis Lyme carditis, high-degree AV block Discharge Exam GENERAL: A&Ox3. NAD. CHEST/LUNGS: CTAB A/P. No crackles, wheezes, rales, rhonchi. HEART: RRR. No m/g/r. EXTREMITIES: No cyanosis, no clubbing, no edema SKIN: Warm and dry. No rashes or lesions. PSYCHIATRIC: Euthymic affect, no SI, no pressured speech, no hallucinations NEUROLOGIC: CN II-XII grossly intact. No FND. Discharge Data Allergies Allergy/AdvReac Type Severity Reaction Status Date / Time POLLEN Allergy Intermediate SNEEZING, Uncoded 05/10/21 23:54 CONGESTION Consultations 05/11/21 01:44 ED Decision to Admit Stat 05/11/21 05:39 Consult Cardiology Routine Ordered Studies 05/10/21 22:49 CT angio chest PE protocol Urgent 05/11/21 02:38 CT abd pelvis wo con Urgent Hospital Course (1) Acute Lyme disease: Patient is a 50 year old male with recent diagnosis of Lyme disease admitted for Lyme carditis. Lyme Disease with Lyme Carditis: - Patient reportedly was being treated for Lyme in outpatient setting prior to presentation. - Serologies revealing Lyme +IgM and +IgG. 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 - Received ceftriaxone IV x5 days while admitted. Antibiotics (PO doxycycline 100mg PO BID) ordered for 21 more days to local pharmacy. 2nd Degree AV Block -- asymptomatic; in setting of Lyme disease vs underlying conduction abnormality - Bradycardia from 30-50s throughout admission - Echo demonstratin:1 AV block, normal LVEF (60-65%), mildly dilated RV, mild-moderate TR, mildly elevated RVSP, no effusion - Cardiology consulted, appreciate recommendations: - Agree with 2:1 AV block, likely secondary to Lyme carditis. - Possible that patient will need pacemaker if conduction disease does not improve - Ok to discharge per cards recs and follow up as outpatient - Suspect possibility that AV block may not be exclusively related to Lyme, as it did not improve with IV CTX -- possible underlying conduction abnormality - F/U on Friday 05/18 at 9:30AM with Dr. Olivo of [facility] [place] [facility] Abdominal Pain -- resolved; suspect secondary to pleuritis - Initially concerning for chest pain, though more abdominal in nature on subsequent exams. - CT-A/P unrevealing for acute processes, lipase (-), LFTs (-), TBili mildly elevated to 2.0. - CT-Chest revealing of trace L pleural effusion and bilateral lower lobe opacities s/o fluid vs. infectious process. - Suspect secondary to mild pleuritis or possibly pericarditis -- improved day-to-day during admission. - NSAIDS p.r.n. Venous Stasis Dermatitis (B/L), with mild Superimposed LLE Cellulitis: - Encourage elevation of legs, compression stockings - Ceftriaxone while admitted with transition to PO antibiotics on discharge as above Elevated Serum Protein: - Fairly elevated serum protein despite low albumin. - Suspect secondary to ongoing inflammation. - With patient's recent hx of fevers and night sweats (though also Lyme+) concern for malignancy. - Will require outpatient work up (2) Abdominal pain: (3) Cellulitis of left leg: (4) Bradycardia: Total Time Total Time Spent Total Time Spent (In Minutes): see attending attestation Discharge Plan Discharge Items Patient Disposition: Home - Self-Care Reason For Visit: ABD PAIN, LYME Discharge Diagnosis: Lyme carditis, High-grade AV Block Condition on Discharge: Fair Activity: Per Instructions section Non-emergency contact: Primary Care Provider and Vice President Integrated Call non-emergency contact if: you have any medication questions and your symptoms worsen Follow-up/Referrals: Juan Carlos Olivo MD [Physician] - 05/18/21 9:30 am Scooter Servin [Primary Care Provider] - 05/19/21 12:15 pm Angel Moulton MD [Resident] - Diet: Heart Healthy Addtl Attending Provider Instructions: You were admitted to [facility] due to chest pain. You were found to have Lyme disease and second-degree AV block. It is possible that the heart block is caused by the Lyme disease, but the possibility remains that you may have some conduction abnormality causing it. As such, you were evaluated by cardiology, who recommended that you follow-up with them as an outpatient. An appointment has been set up for you with cardiology on Tuesday05/18/2021 at 9:30 AM. You will also continue to take doxycycline for the next 21 days after discharge, which will help to fully treat the Lyme disease. Otherwise, please continue to take your daily medications as ordered by your PCP. We recommend that you follow-up with your PCP within a week of discharge for discussion of your hospitalization. Please return to the hospital if you have any worsening or concerning symptoms including but not limited to chest pain, palpitations, shortness of breath. Pending Studies at Discharge: No Stand-Alone Forms: [employer], Smoking Cessation Medications and DC Order Prescriptions: New doxycycline hyclate 100 mg capsule 100 mg PO BID 21 Days Qty: 42 RF: 0 Continued furosemide 40 mg tablet 40 mg PO DAILY RF: 0 triamcinolone acetonide 0.1 % cream 1 applic TOPICAL BID RF: 0 albuterol sulfate 90 mcg/actuation HFA aerosol inhaler 2 puff INHALATION Q4H PRN (Reason: Shortness Of Breath) RF: 0 Discontinued doxycycline hyclate 100 mg capsule 100 mg PO BID RF: 0 Discharge Orders: Discharge Order (Routine); Ordered 05/16/21 Ordered By: Ignacio Courtney/Other Patient Handouts: A1C, 5 Steps for Eating Healthier Admission Data Admit Date/Time: 05/14/21 11:19 Attending Provider: Gibran Reid Admit Provider: James Snyder Primary Care Provider: Scooter Servin Other Providers: Kelvin Castillo ; Juan Carlos Olivo Other Interventions: Discharge Summary Assessment (RN) Last Done: 05/16/21 15:06 Supervising Physician Co-Signing Physician Notes Patient seen and examined with PGY-2 Dr. Adams. Agree with history, exam fi ndings, assessment and plan of care as outlined. In brief, Mr. Spears is a 50 year old male admitted with heart block, possibly secondary to Lyme disease. Feeling well. No chest pain or dyspnea. No palpitations. 1. Lyme carditis. Serologies positive for IgM, IgG. I suspect that this would have resolved by now with IV ceftriaxone if this was solely due to Lyme. Discharged with doxy to complete a 21 day course of antibiotics. 2. Second degree heart block. Echo with EF 60-65%, mildly dilated RV, mild to moderate TR, mildly elevated RVSP. Appreciate recommendations from Dr. Olivo. Has an appt Tuesday with cardiology. 3. elevated serum protein. SPEP and UPEP with pattern of chronic inflammation. No M-spike. 4. mental health concerns. Does not require inpatient psychiatric consult at this time and this can be addressed by his PCP, unless there is a new mental health concern that requires inpatient psychiatric consultation. Dispo: discharge home today Appt with cardiology for Tuesday. I personally spent 35 minutes discharge planning for this patient. Resident Activity Tracking Resident Involvement: Resident Care Provided Care Provided: Adult Hospital Medicine
== END 2021-05-16 15:39 | disposition home or self-care (01) | DRG 868 ==
LOC: ED 22:34 → 2N 22:34 → SUATTDRO 05-11 02:48 → 2N 05-11 04:01 → 2S 05-12 09:37 → SUATTDRO 05-14 11:19

== ENCOUNTER 2021-05-21 09:02 | Observation (INO) ==
--- NOTE | 2021-05-21 09:30 | Pre Anesthesia Assessment ---
Date of Service May 21, 2021 Pre Sedation Assessment Vital Signs BP 179/83 P 44 Cardiovascular + regular rhythm and + bradycardic Respiratory + respiratory effort normal Pre-Sedation Airway Assessment Smoking Status: Current every day smoker Hx Sleep Apnea: No Hx Difficult Intubation: No Short, Thick Neck: No Thyromental Distance: > or= 3.5 Finger Breadths Oral Cavity: + WNL Mallampati Class: III ASA: ASA3 Procedure Planning Contraindications for Sedation: none Current Medications Reviewed: Yes Notes The planned sedation has been discussed with the patient. Informed Consent was obtained. I have identified the patient, determined the appropriateness of sedation and have assessed the patient immediately prior to the procedure. All medicine(s) and interventions are by my order.
--- NOTE | 2021-05-21 09:30 | History & Physical Bridge Note ---
Date of Service May 21, 2021 History & Physical Bridge Note I have examined the patient, reviewed the History & Physical and in the interval since the performance of the History & Physical I have noted the following changes of clinical significance: no changes noted. Still in second degree heart block
[2021-05-21] MEDS ORDERED: LIDOCAINE 1% LOCAL 20 ML VIAL ONE (10:03)
[2021-05-21] MEDS ORDERED: fentaNYL citrate 100 MCG/2 ML VIAL ONE (10:03)
[2021-05-21] MEDS ORDERED: MIDAZOLAM HCL 5 MG/ML 1 ML VIAL ONE (10:03)
[2021-05-21] MEDS ORDERED: WATER, STERILE FOR INJ 10 ML VIAL ONE (10:03)
[2021-05-21] MEDS ORDERED: VANCOMYCIN HCL 1000MG/20ML VIAL ONE (10:03)
[2021-05-21] MEDS ORDERED: BUPIVACAINE 0.25% 30 ML VIAL ONE (10:03)
[2021-05-21] MEDS ORDERED: ONDANSETRON INJ 2 MG/ML 2 ML VIAL ONE (10:25)
[2021-05-21] MEDS ORDERED: hydrALAZINE HCL 20 MG/ML VIAL ONE (11:15)
[2021-05-21] MEDS ORDERED: ACETAMINOPHEN 325 MG TAB PO PRN (11:38)
--- NOTE | 2021-05-21 11:38 | Electrophysiology Report ---
Date of Service May 21, 2021 Electrophysiology Procedure Electrophysiology Procedure Report Procedure performed: Implantation of dual-chamber permanent pacemaker with left bundle pacing lead Staff health and safety tech: Gregory Olivo MD Indication: The patient is a 50-year-old gentleman who presented to the hospital with evidence of second-degree and occasional third-degree heart block. He was initially treated for Lyme disease with the hope that his conduction disease would resolve. However, despite an extensive course of antibiotics, there was no improvement. The patient was felt to be a good candidate for permanent pacemaker due to symptomatic nonreversible AV node disease. A dual-chamber device was selected as he is currently in sinus rhythm and we wish to maintain AV synchrony. Procedure in detail: The patient was informed of the risks benefits and alternatives to the intended procedure and she wished to proceed. He was taken to the electrophysiology suite in a fasting state. A preoperative antibiotic had been administered. The patient was monitored electrocardiographically throughout today's procedure and conscious sedation was administered per protocol. The left upper pectoral area is prepped and draped in usual sterile fashion. This area was anesthetized using subcutaneous administration of a xylocaine solution. An incision was made at this site and carried down to the prepectoralis fascia using sharp dissection. Electrocautery was also employed for dissection as well as for hemostasis. A device pocket was fashioned tissues above the pectoralis muscle. Subsequent to this maneuver the left axillary vein was accessed using modified Seldinger technique. Facilitate passage of a guiding catheter for placement of the ventricular lead on the interventricular septum. Active fixation was used to secure this lead to place. Adequate sensing and threshold parameters were obtained prior to removal of the guiding sheath. The proximal portion of the lead was then sutured to the prepectoralis fascia using nonabsorbable suture. Sheath was employed for passage of the right atrial lead to the right atrium under fluoroscopic guidance. Adequate sensing and threshold parameters were obtained prior to active-fixation of this lead to the endocardial surface. The proximal portion of the lead was then sutured to the pectoralis fascia using nonabsorbable suture. The device pocket was irrigated with antibiotic solution. The leads were then attached to the device. The device and leads were then placed in the pocket and pocket was closed in 3 layers of absorbable suture. Steri-Strips and sterile dressing were applied. The device was tested noninvasively prior to conclusion the procedure. The patient tolerated procedure well there no immediate complications. Equipment used: New pulse generator: [employer]. Model number: [id number] serial number [id number] Right atrial lead: Managing [employer]. Model number: [id number] serial number [id number] Right ventricular lead: Managing [employer]visor [employer]. Model number: 3830 serial number [id number] Measured data: Right atrial lead: P waves measured 1.2 mV. Pacing threshold was in 7 V at 0.5 ms with a pacing impedance of 648 ohms Right ventricular lead: No intrinsic R waves were measured. Pacing threshold was 0.8 V at 0.5 ms with a pacing impedance of 676 ohms Impression: Successful implantation of dual-chamber permanent pacemaker with left bundle pacing lead [facility] Electrophysiology codes Pacing Procedure 1: Pacin Insert/Replace Pacer A & V PG Moderate Sedation Codes Moderate Sedation Codes Procedure 1: Sedation/Anesthesia: 44495 Mod Sedation by the same physician;Init15 Min Child Age 5 & Up Procedure 2: Sedation/Anesthesia: 37511 Mod Sedation by the same physician; Ea [id number] Minutes
--- NOTE | 2021-05-21 11:38 | Post Anesthesia Assessment ---
Date of Service May 21, 2021 Post Sedation Assessment Vital Signs Temp Pulse Resp BP Pulse Ox 05/21/21 09:17 37.0 C 45 L 18 179/93 H 94 Recovery Score Activity: Moves 4 extremities Respiration: Deep Breath/Cough Circulation: +/-20% PreAnes Value Consciousness: Fully Awake Oxygen Saturation: > 92% On Room Air Discharge Sedation Level of Care: Fast Track Phase II Post Sedation Plan On clinical assessment, the patient appears to have tolerated the sedation without complications. Patient is recovering as anticipated. Patient will continue to be monitored by nursing and may be discharged when sedation discharge criteria are met per below protocol. Upon Completions of procedure up to 15 minutes continue every 5 minute vital signs and the P.A.R. score; then discharge to a Phase I or Fast Track to Phase II per the following guidelines: * Discharge Patient to appropriate Phase II area if PAR is 8 or greater or return to pre- procedure baseline. The post - procedure orders will be as directed. * If PAR score is less than 8 or not return to pre-procedure baseline then patient will follow Phase I monitoring till PAR is reached for Phase II. The Phase I may be done in procedure room or may call to secure a Phase I area. * If naloxone or flumazenil are used for reversal, hold in Phase I for continued monitoring from when last reversal dose was given for a minimum of 60 minutes or longer pending the nurse and/or physician discretion of patient condition before discharge to Phase II. Please call the Sedation Physician to re-evaluate and complete post-note for discharge to Phase II area. Do NOT discharge from procedure sedation or Phase 1 until post- sedation evaluation note is complete by procedure /sedation MD Sedation Discharge Instructions to be given to the patient at discharge to home.
[2021-05-21] MEDS ORDERED: ALBUTEROL 0.083% NEBU SOLN 3 ML VIAL NEB PRN (11:41)
[2021-05-21] MEDS: ceFAZolin 2000MG 2,000 MG/15 ML SYR IV SCH (18:18)
[2021-05-21] MEDS ORDERED: ceFAZolin 1000MG 1,000 MG/7.5 ML SYR IV SCH (18:30)
[2021-05-21] MEDS: oxyCODONE HCL IR 5 MG TAB (IMMEDIATE RELEASE) PO PRN ×2 (18:31→22:24)
[2021-05-21] MEDS: TRIAMCINOLONE ACET 0.1% CR 15 GM TUBE TOP SCH (20:39)
[2021-05-21] MEDS: DOXYCYCLINE HYCLATE 100 MG CAP PO SCH (20:39)
[2021-05-22] MEDS: ceFAZolin 2000MG 2,000 MG/15 ML SYR IV SCH (02:38)
[2021-05-22 08:02] VITALS: BP 154/106; PULSE 71; TEMP 97.7; O2SAT 92
--- NOTE | 2021-05-22 08:35 | XRay Report ---
XR chest 2V PA/lateral CLINICAL HISTORY: Pacemaker insertion. COMPARISON STUDY: Chest radiograph May 10, 2021. Chest CT May 11, 2021. FINDINGS: There is no pneumothorax following placement of a dual lead right subclavian pacemaker. Kathleen d tips project over the expected location of the right atrial appendage and the right ventricle. Card iomegaly is noted without evidence for pulmonary edema. Left basilar opacity favors atelectasis. IMPRESSION: No pneumothorax following placement of a dual-lead left subclavian pacemaker. ACT 112: Negative or not required by law. Electronically signed by: Lex Dumont M.D. 05/22/2021 8:33 AM
[2021-05-22] MEDS: TRIAMCINOLONE ACET 0.1% CR 15 GM TUBE TOP SCH (08:54)
[2021-05-22] MEDS: DOXYCYCLINE HYCLATE 100 MG CAP PO SCH (08:54)
[2021-05-22] MEDS ORDERED: FUROSEMIDE 40 MG TAB PO SCH (09:00)
== END 2021-05-22 10:11 | disposition home or self-care (01) ==
LOC: 2S 09:02 → EP 09:02